=== PATIENT | female | born 1970 | race Caucasian/White ===

== ENCOUNTER 2021-02-06 10:03 | Inpatient (IN) ==
[2021-02-06] MEDS ORDERED: MoRPHine SULFATE 2 MG/ML CARP IV PRN (17:20)
[2021-02-06] MEDS ORDERED: ACETAMINOPHEN 325 MG TAB PO PRN (17:20)
[2021-02-06] MEDS ORDERED: ONDANSETRON INJ 2 MG/ML 2 ML VIAL IV PRN (17:20)
[2021-02-06] MEDS ORDERED: MoRPHine SULFATE 4 MG/ML 1 ML CARP\\VIAL IV PRN (17:20)
[2021-02-06] MEDS ORDERED: PIPERACILL/TAZOBAC CONSULT ACTIVE PRN (17:20)
[2021-02-06] MEDS: LACTATED RINGER'S 1,000 ML IV SCH (17:40)
[2021-02-06 17:46] LABS: Basophils # (auto) 0.01 K/uL (0-0.2); Basophils % (auto) 0.1 %; Eosinophils # (auto) 0.06 K/uL (0-0.5); Eosinophils % (auto) 0.9 %; Hematocrit (blood only) 40.8 % (37-47); Hemoglobin 13.8 g/dL (12.0-16.0); Immature Granulocytes # (auto) 0.01 K/uL (0.00-0.02); Immature Granulocytes % (auto) 0.1 %; Lymphocytes # (auto) 1.25 K/uL (1.2-3.4); Lymphocytes % (auto) 18.2 %; Mean Corpuscular Hemoglobin 28.2 pg (25-34); Mean Corpuscular Volume 83.3 fL (80-100); Mean Platelet Volume 9.6 fL (7.4-10.4); Monocytes # (auto) 0.65 K/uL (0.11-0.59); Monocytes % (auto) 9.5 %; Neutrophils # (auto) 4.89 K/uL (1.4-6.5); Neutrophils % (auto) 71.2 %; Platelet Count 309 K/uL (130-400); RDW Coefficient of Variation 13.9 % (11.5-14.5); RDW Standard Deviation 42.8 fL (36.4-46.3); White Blood Count 6.87 K/uL (4.8-10.8)
[2021-02-06 17:57] LABS: Mean Corpuscular Hgb Conc 33.8 g/dL (32-36)
[2021-02-06 18:06] LABS: Albumin Level 3.2 gm/dl (3.4-5.0); BUN Creatinine Ratio 11.5 (10-20); Calcium 8.7 mg/dl (8.5-10.1); Creatinine Clr Calc Pharmacy 106.7 ml/min; Est GFR (African American) 125.7 ml/min; Est GFR (Non-African American) 108.5 ml/min; Potassium 3.5 mmol/L (3.5-5.1)
[2021-02-06 18:07] LABS: Albumin Globulin Ratio 0.9 (0.9-2); Bilirubin,Total 6.1 mg/dl (0.2-1); Globulin 3.4 gm/dl (2.5-4.0); Total Protein 6.6 gm/dl (6.4-8.2)
--- NOTE | 2021-02-06 18:24 | History & Physical Report ---
Date of Service February 06, 2021 Assessment & Plan (1) Acute cholecystitis: diagnosed on imaging at [place], WBC was elevated on admission, LFT elevated treated with Zosyn for several days, no fever, vitals stable, WBC now normal less pain in RUQ consult surgery for cholecystectomy timing will depend on GI recommendations in terms of ERCP, see below (2) Cholangitis: Bili has gone up in past 24 hours from 4 to 6 alk phos up in 200's continue Zosyn IV MRCP did not show any obstructing stones but it did show CBD dilation could have sludge? consult [facility] GI for possible ERCP NPO after midnight (3) Cholelithiasis: causing cholecystitis needs lap cholecystectomy Admission and Anticipated Discharge Date Admission Date: February 06, 2021 History of Present Illness Chief Complaint: I was sent her for a procedure Primary Care Provider: Jayden Hurtado 50 yo female with no significant medical history who presented to [facility] 4 days ago with RUQ pain. She was diagnosed with gall stone cholecystitis. She was treated with Zosyn IV and IV fluids and made NPO. Her bilirubin started to rise to 4 and then to 6. The surgeon requested MRCP to be done prior to performing cholecystectomy. MRCP per sign out from physician did not show any gall stones but it did show dilation of the common bile duct. General surgeon requested that she be transferred to facility with ERCP capabilities. This evening on arrival she c/o some pain in RUQ but otherwise she feels okay. No nausea or vomiting, no diarrhea, no fever/chills. No chest pain, no dyspnea. Her only history is allergies, she takes Singulair. Stat labs show WBC normal, Hb normal, Bili is 6.1 and alk phos is 219. ALT 512 and AST 202. Cr is normal at 0.5. She says she is very thirsty but otherwise no requests. Allergies Allergy/AdvReac Type Severity Reaction Status Date / Time Sulfa (Sulfonamide Allergy Intermediate numb lips, Verified 02/15/12 14:32 Antibiotics) cheeks feel funny Past Med/Surg History Medical History (Updated 02/06/21 @ 18:21 by Edwin Aquino DO) Seasonal allergies Social History Smoking Status: Never smoker Hx Alcohol Use: No Hx Substance Use: No Preferred Language: Uzbek Communication Ability: Effective Anthropometrist Required: No Beliefs That Will Affect Care: None Current Living Situation: Spouse Other Information That Helps Us Care for You: No Feels Safe at Home: Yes Safety Concerns: Feels Safe At This Time Assistive Devices: None Review of Systems Review of Systems: All systems reviewed & are unremarkable except as noted in HPI & below Constitutional: no fever, no chills, no sweats, no fatigue and no weakness Respiratory: no cough and no dyspnea Cardiovascular: no chest pain, no syncope and no edema Gastrointestinal: + abdominal pain; no nausea, no vomiting, no constipation, no diarrhea/loose stools, no blood in stools and no melena Genitourinary: no dysuria Physical Exam Constitutional: WD/WN, vitals as above Eyes: PERRL, conjunctivae normal, anicteric sclerae ENMT: external ear and nose normal, oropharynx normal Neck: trachea midline, no thyromegaly Respiratory: normal respiratory effort, lungs clear to auscultation Cardiovascular: RRR, no murmur, no edema Gastrointestinal (Abdomen): Inspection/Auscultation: abdomen normal to inspection and normal bowel sounds; abdomen not distended Percussion/Palpation: + abdomen tender (RUQ), abdomen soft and normal to percussion; no guarding and abdomen not rigid Musculoskeletal: no cyanosis or clubbing, extremities motor strength 5/5 Skin: no rashes, warm and dry Neurologic: patellar DTR's 2+ bilat, sensation intact and PERRL, EOMI, accommodation nl, no face palsy, no dysarthria Psychiatric: A+Ox3, euthymic affect Lymphatic: no cervical or axillary lymphadenopathy Results & Data Results & Data ([facility]) Vital Signs (Past 12 Hours) Vital Signs Temp Resp Pulse Ox 02/06/21 17:15 36.8 C 16 97 Laboratory Results Laboratory Results - last 24 hr 02/06/21 02/06/21 02/06/21 17:36 17:36 18:12 WBC 6.87 RBC 4.90 Hgb 13.8 Hct 40.8 MCV 83.3 MCH 28.2 MCHC 33.8 RDW Std Deviation 42.8 RDW Coeff of Sammy 13.9 Plt Count 309 MPV 9.6 Immature Gran % (Auto) 0.1 Neut % (Auto) 71.2 Lymph % (Auto) 18.2 Noble % (Auto) 9.5 Eos % (Auto) 0.9 Baso % (Auto) 0.1 Neut # (Auto) 4.89 Lymph # (Auto) 1.25 Noble # (Auto) 0.65 H Eos # (Auto) 0.06 Baso # (Auto) 0.01 Immature Gran # (Auto) 0.01 Sodium 142 Potassium 3.5 Chloride 110 H Carbon Dioxide 25 Anion Gap 7.0 BUN 6 L Creatinine 0.54 L Est Cr Clr Drug Dosing 106.7 Est GFR ( Amer) 125.7 Est GFR (Non-Af Amer) 108.5 BUN/Creatinine Ratio 11.5 Glucose 73 Calcium 8.7 Total Bilirubin 6.1 H AST 202 H ALT 512 H Alkaline Phosphatase 219 H Total Protein 6.6 Albumin 3.2 L Globulin 3.4 Albumin/Globulin Ratio 0.9 COVID-19 Eval Order Covid19 at [facility] SARS-CoV-2 (PCR) 02/06/21 18:12 WBC RBC Hgb Hct MCV MCH MCHC RDW Std Deviation RDW Coeff of Sammy Plt Count MPV Immature Gran % (Auto) Neut % (Auto) Lymph % (Auto) Noble % (Auto) Eos % (Auto) Baso % (Auto) Neut # (Auto) Lymph # (Auto) Noble # (Auto) Eos # (Auto) Baso # (Auto) Immature Gran # (Auto) Sodium Potassium Chloride Carbon Dioxide Anion Gap BUN Creatinine Est Cr Clr Drug Dosing Est GFR ( Amer) Est GFR (Non-Af Amer) BUN/Creatinine Ratio Glucose Calcium Total Bilirubin AST ALT Alkaline Phosphatase Total Protein Albumin Globulin Albumin/Globulin Ratio COVID-19 Eval Order SARS-CoV-2 (PCR) Pending Code Status & VTE Plan VTE Prophylaxis Plan VTE Prophylaxis will be ordered: Yes PG Care Time/CCT Total # of Minutes Spent Total Time Spent with Patient: Total time spent is greater than 50% in coordination of care (as documented) at patient's floor/unit and/or counseling patient: Coding Level of Care Code 30309 Initial Inpt Care Lvl 2 Diagnoses Acute cholecystitis K81.0 Cholangitis K83.09 Cholelithiasis K80.20
--- NOTE | 2021-02-06 19:06 | Surgery Consultation ---
Date of Consultation February 06, 2021 Assessment & Plan (1) Cholangitis: (2) Cholelithiasis: (3) Acute cholecystitis: pt is a 50 year-old female who was admitted to hospital for acute abdominal pain, IMP: cholangitis, CBD stone, acute cholecystitis, cholelithiasis, I agree with consult GI doctor for ERCP, conservative treatment now, IV fluid, iv antibiotic, repeat labs in morning, U/S study gallbladder, or HIDA scan, will do laparoscopic cholecystectomy after ERCP, pt agrees with [facility] plan, I answered all questions, will F/U Present on Admission?: Yes History of Present Illness Attending Physician: PHistory of Present Illness Chief Complaint: I was sent her for a procedure Primary Care Provider: Jayden StrongKahlil Genesis 50 yo female with no significant medical history who presented to [facility] 4 days ago with RUQ pain. She was diagnosed with gall stone cholecystitis. She was treated with Zosyn IV and IV fluids and made NPO. Her bilirubin started to rise to 4 and then to 6. The surgeon requested MRCP to be done prior to performing cholecystectomy. MRCP per sign out from physician did not show any gall stones but it did show dilation of the common bile duct. General surgeon requested that she be transferred to facility with ERCP capabilities. This evening on arrival she c/o some pain in RUQ but otherwise she feels okay. No nausea or vomiting, no diarrhea, no fever/chills. No chest pain, no dyspnea. Her only history is allergies, she takes Singulair. Stat labs show WBC normal, Hb normal, Bili is 6.1 and alk phos is 219. ALT 512 and AST 202. Cr is normal at 0.5. She says she is very thirsty but otherwise no requests. I ( Brook Orlando mD ) got a call for consult cholecystitis, I reviewed pt's H/P, labs, MRCP, with pt, pt has mild epigastric pain, no nausea, no vomiting, no fever, Allergies Allergy/AdvReac Type Severity Reaction Status Date / Time Sulfa (Sulfonamide Allergy Intermediate numb lips, Verified 02/15/12 14:32 Antibiotics) cheeks feel funny Past Med/Surg History Medical History (Updated 02/06/21 @ 18:21 by Edwin Aquino DO) Seasonal allergies Social History Smoking Status: Never smoker Hx Alcohol Use: No Hx Substance Use: No Preferred Language: Welsh Communication Ability: Effective Analytical Technician Required: No Beliefs That Will Affect Care: None Current Living Situation: Spouse Other Information That Helps Us Care for You: No Feels Safe at Home: Yes Safety Concerns: Feels Safe At This Time Assistive Devices: None Review of Systems Review of Systems: All systems reviewed & are unremarkable except as noted in HPI & below Constitutional: no fever, no chills, no sweats, no fatigue and no weakness Respiratory: no cough and no dyspnea Cardiovascular: no chest pain, no syncope and no edema Gastrointestinal: + abdominal pain; no nausea, no vomiting, no constipation, no diarrhea/loose stools, no blood in stools and no melena Genitourinary: no dysuria naentte Aquino DO Allergies Allergy/AdvReac Type Severity Reaction Status Date / Time Sulfa (Sulfonamide Allergy Intermediate numb lips, Verified 02/15/12 14:32 Antibiotics) cheeks feel funny Home Medications Medication Instructions Recorded Confirmed Type cetirizine [Zyrtec] 10 mg PO DAILY PRN 02/06/21 02/06/21 History Patient History Medical History (Updated 02/06/21 @ 18:21 by Edwin Aquino DO) Seasonal allergies Social History Smoking Status: Never smoker Hx Alcohol Use: No Hx Substance Use: No Preferred Language: Welsh Communication Ability: Effective Analytical Technician Required: No Beliefs That Will Affect Care: None Current Living Situation: Spouse Other Information That Helps Us Care for You: No Feels Safe at Home: Yes Safety Concerns: Feels Safe At This Time Assistive Devices: None Physical Exam Constitutional: WD/WN, vitals as above well developed and well nourished Eyes: PERRL, conjunctivae normal, anicteric sclerae ENMT: external ear and nose normal, oropharynx normal Neck: trachea midline, no thyromegaly Respiratory: normal respiratory effort, lungs clear to auscultation normal respiratory effort Cardiovascular: RRR, no murmur, no edema Rate/Rhythm: regular rate Gastrointestinal (Abdomen): Percussion/Palpation: + abdomen tender and abdomen soft mild tenderness at epigastric area, no rebound pain, no distend, BS + Musculoskeletal: no cyanosis or clubbing, extremities motor strength 5/5 Skin: no rashes, warm and dry Neurologic: awake Psychiatric: Orientation: alert and oriented x 3 Results & Data ([facility]) Vital Signs (Past 12 Hours) Vital Signs Temp Resp Pulse Ox 02/06/21 17:15 36.8 C 16 97 Laboratory Results Abnormal lab results 02/06/21 02/06/21 Range/Units 17:36 17:36 Weston # (Auto) 0.65 H (0.11-0.59) K/uL Chloride 110 H (98-107) mmol/L BUN 6 L (7-18) mg/dl Creatinine 0.54 L (0.6-1.2) mg/dl Total Bilirubin 6.1 H (0.2-1) mg/dl AST 202 H (15-37) U/L ALT 512 H (12-78) U/L Alkaline Phosphatase 219 H (45-117) U/L Albumin 3.2 L (3.4-5.0) gm/dl
[2021-02-06] MEDS ORDERED: PIPERACILLIN/TAZOBACTAM 3.375 GM in DEXTROSE 5% 100 ML IV ONE (19:15)
[2021-02-06] MEDS: HEPARIN SOD 5,000 UNIT/0.5 ML VIAL SQ SCH (21:08)
[2021-02-07] MEDS: PIPERACILLIN/TAZOBACTAM 3.375 GM in DEXTROSE 5% 100 ML IV SCH ×3 (01:00→17:45)
[2021-02-07] MEDS: HEPARIN SOD 5,000 UNIT/0.5 ML VIAL SQ SCH ×3 (04:58→21:00)
[2021-02-07] MEDS: LACTATED RINGER'S 1,000 ML IV SCH ×2 (04:59→15:58)
[2021-02-07 07:31] LABS: Basophils # (auto) 0.01 K/uL (0-0.2); Basophils % (auto) 0.2 %; Eosinophils # (auto) 0.05 K/uL (0-0.5); Eosinophils % (auto) 0.8 %; Hematocrit (blood only) 38.2 % (37-47); Hemoglobin 12.8 g/dL (12.0-16.0); Immature Granulocytes # (auto) 0.01 K/uL (0.00-0.02); Immature Granulocytes % (auto) 0.2 %; Lymphocytes # (auto) 0.85 K/uL (1.2-3.4); Mean Corpuscular Hgb Conc 33.5 g/dL (32-36); Mean Corpuscular Volume 83.6 fL (80-100); Mean Platelet Volume 9.7 fL (7.4-10.4); Monocytes # (auto) 0.53 K/uL (0.11-0.59); Monocytes % (auto) 8.7 %; Neutrophils # (auto) 4.61 K/uL (1.4-6.5); Neutrophils % (auto) 76.1 %; Platelet Count 301 K/uL (130-400); RDW Coefficient of Variation 13.9 % (11.5-14.5); RDW Standard Deviation 42.9 fL (36.4-46.3); Red Blood Count 4.57 M/uL (4.2-5.4); White Blood Count 6.06 K/uL (4.8-10.8)
[2021-02-07 07:45] LABS: Partial Thromboplastin Ratio 1.2; Partial Thromboplastin Time 30.3 Seconds (21.0-31.0); Prothrombin Time 10.5 Seconds (9.0-12.0)
[2021-02-07 08:08] LABS: Albumin Level 2.8 gm/dl (3.4-5.0); BUN Creatinine Ratio 13.3 (10-20); Calcium 8.6 mg/dl (8.5-10.1); Creatinine Clr Calc Pharmacy 101.1 ml/min; Est GFR (African American) 123.5 ml/min; Est GFR (Non-African American) 106.6 ml/min; Potassium 3.2 mmol/L (3.5-5.1)
[2021-02-07 08:11] LABS: Albumin Globulin Ratio 0.9 (0.9-2); Bilirubin,Total 5.6 mg/dl (0.2-1); Globulin 3.3 gm/dl (2.5-4.0); Total Protein 6.1 gm/dl (6.4-8.2)
--- NOTE | 2021-02-07 08:34 | Hospitalist Progress Note ---
Date of Service February 07, 2021 Assessment & Plan (1) Acute cholecystitis: diagnosed on imaging at [place], WBC was elevated on admission, LFT elevated treated with Zosyn for several days, no fever, vitals stable, WBC now normal less pain in RUQ consult surgery for cholecystectomy, Dr. Orlando plans to have her follow up on Sunday 02/11 for lap vannesa will get ERCP today to clear out common bile duct (2) Cholangitis: Bili went from 4 to 6, today it is 5.6 AST and ALT elevated as well as Alk phos continue Zosyn IV MRCP did not show any obstructing stones but it did show CBD dilation could have sludge? consult [facility] GI for ERCP, plan to do this afternoon will repeat labs in the AM, if feeling good can send home on oral antibiotics and follow up for lap vannesa (3) Cholelithiasis: causing cholecystitis needs lap cholecystectomy eventually Admission and Anticipated Discharge Date Admission Date: February 06, 2021 Subjective patient doing well today, no issues over night, less pain reviewed labs, WBC 6k, Hb 12.8, K low at 3.2, Cr 0.57, bili is 5.6, AST 116, ALT 378, Alk phos 199 appreciate GI consult, plan for ERCP today Dr. Orlando followed up with patient today, he can have her follow up with him for lap vannesa next Wednesday discussed plan with patient, can check labs in AM, make sure LFT trending down, send home on antibiotics and follow up for surgery she is in full agreement with this plan no fever/chills, no dyspnea, no cough, no chest pain, minimal abdominal pain, no nausea/vomiting Review of Systems Review of Systems: All systems reviewed & are unremarkable except as noted in Subjective Physical Exam Constitutional: WD/WN, vitals as above Neck: trachea midline, no thyromegaly Respiratory: normal respiratory effort, lungs clear to auscultation Cardiovascular: RRR, no murmur, no edema Gastrointestinal (Abdomen): Inspection/Auscultation: abdomen normal to inspection and normal bowel sounds; abdomen not distended Percussion/Palpation: + abdomen tender (RUQ), abdomen soft and normal to percussion; no guarding and abdomen not rigid Musculoskeletal: no cyanosis or clubbing, extremities motor strength 5/5 Skin: no rashes, warm and dry Neurologic: patellar DTR's 2+ bilat, sensation intact and PERRL, EOMI, accommodation nl, no face palsy, no dysarthria Psychiatric: A+Ox3, euthymic affect Lymphatic: no cervical or axillary lymphadenopathy Results & Data Results & Data ([facility]) Vital Signs (Past 12 Hours) Vital Signs Temp Pulse Pulse Resp BP Pulse Ox 02/07/21 07:30 36.7 C 76 18 113/72 95 02/06/21 23:40 36.5 C 72 20 104/64 97 Laboratory Results Laboratory Results - last 24 hr 02/06/21 02/06/21 02/06/21 17:36 17:36 18:12 WBC 6.87 RBC 4.90 Hgb 13.8 Hct 40.8 MCV 83.3 MCH 28.2 MCHC 33.8 RDW Std Deviation 42.8 RDW Coeff of Sammy 13.9 Plt Count 309 MPV 9.6 Immature Gran % (Auto) 0.1 Neut % (Auto) 71.2 Lymph % (Auto) 18.2 Bladen % (Auto) 9.5 Eos % (Auto) 0.9 Baso % (Auto) 0.1 Neut # (Auto) 4.89 Lymph # (Auto) 1.25 Bladen # (Auto) 0.65 H Eos # (Auto) 0.06 Baso # (Auto) 0.01 Immature Gran # (Auto) 0.01 PT INR APTT PTT Ratio Sodium 142 Potassium 3.5 Chloride 110 H Carbon Dioxide 25 Anion Gap 7.0 BUN 6 L Creatinine 0.54 L Est Cr Clr Drug Dosing 106.7 Est GFR ( Amer) 125.7 Est GFR (Non-Af Amer) 108.5 BUN/Creatinine Ratio 11.5 Glucose 73 Calcium 8.7 Total Bilirubin 6.1 H AST 202 H ALT 512 H Alkaline Phosphatase 219 H Total Protein 6.6 Albumin 3.2 L Globulin 3.4 Albumin/Globulin Ratio 0.9 COVID-19 Eval Order Covid19 at [facility] SARS-CoV-2 (PCR) 02/06/21 02/07/21 02/07/21 18:12 07:11 07:11 WBC 6.06 RBC 4.57 Hgb 12.8 Hct 38.2 MCV 83.6 MCH 28.0 MCHC 33.5 RDW Std Deviation 42.9 RDW Coeff of Sammy 13.9 Plt Count 301 MPV 9.7 Immature Gran % (Auto) 0.2 Neut % (Auto) 76.1 Lymph % (Auto) 14.0 Bladen % (Auto) 8.7 Eos % (Auto) 0.8 Baso % (Auto) 0.2 Neut # (Auto) 4.61 Lymph # (Auto) 0.85 L Bladen # (Auto) 0.53 Eos # (Auto) 0.05 Baso # (Auto) 0.01 Immature Gran # (Auto) 0.01 PT 10.5 INR 1.0 APTT 30.3 PTT Ratio 1.2 Sodium Potassium Chloride Carbon Dioxide Anion Gap BUN Creatinine Est Cr Clr Drug Dosing Est GFR ( Amer) Est GFR (Non-Af Amer) BUN/Creatinine Ratio Glucose Calcium Total Bilirubin AST ALT Alkaline Phosphatase Total Protein Albumin Globulin Albumin/Globulin Ratio COVID-19 Eval Order SARS-CoV-2 (PCR) NEGATIVE 02/07/21 07:11 WBC RBC Hgb Hct MCV MCH MCHC RDW Std Deviation RDW Coeff of Sammy Plt Count MPV Immature Gran % (Auto) Neut % (Auto) Lymph % (Auto) Bladen % (Auto) Eos % (Auto) Baso % (Auto) Neut # (Auto) Lymph # (Auto) Bladen # (Auto) Eos # (Auto) Baso # (Auto) Immature Gran # (Auto) PT INR APTT PTT Ratio Sodium 139 Potassium 3.2 L Chloride 107 Carbon Dioxide 23 Anion Gap 9.0 BUN 8 Creatinine 0.57 L Est Cr Clr Drug Dosing 101.1 Est GFR ( Amer) 123.5 Est GFR (Non-Af Amer) 106.6 BUN/Creatinine Ratio 13.3 Glucose 76 Calcium 8.6 Total Bilirubin 5.6 H AST 116 H ALT 378 H Alkaline Phosphatase 199 H Total Protein 6.1 L Albumin 2.8 L Globulin 3.3 Albumin/Globulin Ratio 0.9 COVID-19 Eval Order SARS-CoV-2 (PCR) Medications Administered Current Inpatient Medications Acetaminophen (Acetaminophen 325 Mg Tab) 650 mg PO Q4H PRN PRN Reason: pain/fever Stop: 03/08/21 17:19 Heparin Sodium (Porcine) (Heparin Sod 5,000 Unit/0.5 Ml Vial) 5,000 units SQ Q8 NAEL Stop: 03/08/21 21:59 Last Admin: 02/07/21 04:58 Dose: 5,000 units Documented by: Piperacillin Sod/Tazobactam (Sod 3.375 gm/ Dextrose) 115 mls @ 28.75 mls/hr IV Q8H NAEL Stop: 02/16/21 17:59 Last Infusion: 02/07/21 04:56 Dose: Infused Documented by: Lactated Ringer's (Lr) 1,000 mls @ 80 mls/hr IV .[id number] NAEL Stop: 03/08/21 17:29 Last Admin: 02/07/21 04:59 Dose: 80 mls/hr Documented by: Potassium Chloride (K Darryl / Wtr) 10 meq in 100 mls @ 100 mls/hr IV Q1H NAEL Stop: 02/07/21 10:44 Miscellaneous Information (Piperacill/Tazobac Consult Active) 1 ea N/A UD PRN PRN Reason: Consult Stop: 03/08/21 17:19 Morphine Sulfate (Morphine Sulfate 2 Mg/Ml Carp) 2 mg IV Q4H PRN PRN Reason: Pain Stop: 02/20/21 17:19 Morphine Sulfate (Morphine Sulfate 4 Mg/Ml 1 Ml Carp\Vial) 4 mg IV Q4H PRN PRN Reason: Severe Pain Stop: 02/20/21 17:19 Last Admin: 02/06/21 18:20 Dose: 4 mg Documented by: Ondansetron HCl (Ondansetron Inj 2 Mg/Ml 2 Ml Vial) 4 mg IV Q6H PRN PRN Reason: Nausea Stop: 03/08/21 17:19 Last Admin: 02/06/21 18:20 Dose: 4 mg Documented by: PG Care Time/CCT Total # of Minutes Spent Total Time Spent with Patient: Total time spent is greater than 50% in coordination of care (as documented) at patient's floor/unit and/or counseling patient: Coding Level of Care Code 99298 Subseq Hosp Care Lvl 2 Diagnoses Acute cholecystitis K81.0 Cholangitis K83.09 Cholelithiasis K80.20
--- NOTE | 2021-02-07 08:50 | Gastrointestinal Consultation ---
Date of Consultation February 07, 2021 Assessment & Plan (1) Cholelithiasis: This is a 50-year-old female transferred here from outside hospital after being admitted with cholecystitis; has been on empiric ABX, and GI asked to evaluate for possible ERCP given concern for cholangitis, cholecystitis. Though MRCP was unremarkable for there is concern for possible biliary involvement as she has obstructive LFTs, elevated bilirubin. She's afebrile, not tachycardic, or hypotensive, abdomen is soft on exam. -Keep n.p.o. -IVF -Empiric ABX -Will plan for ERCP later today -Agree with surgical consult for possible cholecystectomy -Analgesia as needed -Trend LFTs, CBC Thank you for allowing us to participate in the care of this patient. Please call with any acute changes, questions or concerns. Please see addendum below with additional recommendation from my supervising physician. Supervising Physician Co-Signing Physician Notes I saw and evaluated the patient. She presented with approximately 5 to 6 days of intermittent right-sided abdominal discomfort associated with nausea. She was found to have a significant elevation of her liver enzymes in addition to serum bilirubin. Imaging does show evidence of cholelithiasis, unclear if she has choledocholithiasis. Physical examination Scleral icterus noted Right upper quadrant tenderness noted No shortness of breath Impression: Patient with elevated liver enzymes, biliary colic most consistent with choledocholithiasis. Given the significant elevation of the serum bilirubin we will proceed with ERCP given the high pretest probability. I have consented the patient for endoscopic ultrasound should we have difficulty with biliary cannulation. We have discussed the risks to include bleeding, infection, perforation, pancreatitis, failed biliary cannulation and need for follow-up studies. History of Present Illness Reason for Consultation: Cholecystitis, possible cholangitis Requesting Physician: Dr. Aquino Attending Physician: Edwin Aquino, DO History of Present Illness This is a 50 -year-old female with no significant past medical history, transferred here yesterday from [facility]. Initially admitted there Wednesday after presenting with abdominal pain that began the previous day. She had transaminitis, and elevated bilirubin at 2. She was started on Zosyn. Initially, CTAP showed gallbladder wall thickening and edema with prominent wall enhancement, and MRCP was performedMRCP imaging was unremarkable, however, findings were concerning for acute cholecystitis with gallbladder wall thickening, pericholecystic fluid, small gallstones. Per staff, intention was to transfer to a tertiary center with ERCP capability, initially they tried for [facility] however, due to bed availability, this was not done. Her bilirubin increased to 6. She was transferred here yesterday. She was evaluated by surgery yesterday, who is planning for laparoscopic cholecystectomy after we evaluate her for potential ERCP. Overnight, patient continues on IV antibiotics and fluids. Bilirubin is 6, AST 202, ALT 512, ALP 219, INR of 1, WBC 6, she is Covid negative. In general she states her pain is generally controlled, is fairly constant and a low level which she finds tolerable. Denies nausea vomiting, hematemesis, melena, fevers or chills, rigors, chest pain or shortness of breath, tobacco use, NSAID use or anticoagulants, no NSAID use. Denies history of gastric bypass or biliary surgery. Allergies Allergy/AdvReac Type Severity Reaction Status Date / Time Sulfa (Sulfonamide Allergy Intermediate numb lips, Verified 02/15/12 14:32 Antibiotics) cheeks feel funny Home Medications Medication Instructions Recorded Confirmed Type cetirizine [Zyrtec] 10 mg PO DAILY PRN 02/06/21 02/06/21 History Patient History Medical History Seasonal allergies Social History Smoking Status: Never smoker Hx Alcohol Use: No Hx Substance Use: No Preferred Language: Citizen Of [place] Communication Ability: Effective Strapper And Buffer Required: No Beliefs That Will Affect Care: None Current Living Situation: Spouse Other Information That Helps Us Care for You: No Feels Safe at Home: Yes Safety Concerns: Feels Safe At This Time Assistive Devices: None Review of Systems 2 Review of Systems: All systems reviewed & are unremarkable except as noted in HPI & below Physical Exam Constitutional: WD/WN, vitals as above Eyes: + anicteric sclerae Respiratory: normal respiratory effort, lungs clear to auscultation Cardiovascular: RRR, no murmur, no edema Gastrointestinal (Abdomen): Inspection/Auscultation: abdomen normal to inspection and normal bowel sounds; abdomen not distended Percussion/Palpation: abdomen soft; no guarding mild TTP epigastrium, no rebound Skin: no rashes, warm and dry no jaundice Psychiatric: A+Ox3, euthymic affect Results & Data ([place]) Vital Signs (Past 12 Hours) Vital Signs Temp Pulse Pulse Resp BP Pulse Ox 02/07/21 07:30 36.7 C 76 18 113/72 95 02/06/21 23:40 36.5 C 72 20 104/64 97 Laboratory Results 02/07/21 02/07/21 02/07/21 Range/Units 07:11 07:11 07:11 WBC 6.06 (4.8-10.8) K/uL RBC 4.57 (4.2-5.4) M/uL Hgb 12.8 (12.0-16.0) g/dL Hct 38.2 (37-47) % MCV 83.6 (80-100) fL MCH 28.0 (25-34) pg MCHC 33.5 (32-36) g/dL RDW Std Deviation 42.9 (36.4-46.3) fL RDW Coeff of Sammy 13.9 (11.5-14.5) % Plt Count 301 (130-400) K/uL MPV 9.7 (7.4-10.4) fL Immature Gran % (Auto) 0.2 % Neut % (Auto) 76.1 % Lymph % (Auto) 14.0 % [place] % (Auto) 8.7 % Eos % (Auto) 0.8 % Baso % (Auto) 0.2 % Neut # (Auto) 4.61 (1.4-6.5) K/uL Lymph # (Auto) 0.85 L (1.2-3.4) K/uL [place] # (Auto) 0.53 (0.11-0.59) K/uL Eos # (Auto) 0.05 (0-0.5) K/uL Baso # (Auto) 0.01 (0-0.2) K/uL Immature Gran # (Auto) 0.01 (0.00-0.02) K/uL PT 10.5 (9.0-12.0) Seconds INR 1.0 (0.9-1.1) APTT 30.3 (21.0-31.0) Seconds PTT Ratio 1.2 Sodium 139 (136-145) mmol/L Potassium 3.2 L (3.5-5.1) mmol/L Chloride 107 (98-107) mmol/L Carbon Dioxide 23 (21-32) mmol/L Anion Gap 9.0 (3-11) BUN 8 (7-18) mg/dl Creatinine 0.57 L (0.6-1.2) mg/dl Est Cr Clr Drug Dosing 101.1 ml/min Est GFR ( Amer) 123.5 ml/min Est GFR (Non-Af Amer) 106.6 ml/min BUN/Creatinine Ratio 13.3 (10-20) Glucose 76 (70-99) mg/dl Calcium 8.6 (8.5-10.1) mg/dl Total Bilirubin 5.6 H (0.2-1) mg/dl AST 116 H (15-37) U/L ALT 378 H (12-78) U/L Alkaline Phosphatase 199 H (45-117) U/L Total Protein 6.1 L (6.4-8.2) gm/dl Albumin 2.8 L (3.4-5.0) gm/dl Globulin 3.3 (2.5-4.0) gm/dl Albumin/Globulin Ratio 0.9 (0.9-2) COVID-19 Eval Order SARS-CoV-2 (PCR) (Negative) 02/06/21 02/06/21 02/06/21 Range/Units 18:12 18:12 17:36 WBC 6.87 (4.8-10.8) K/uL RBC 4.90 (4.2-5.4) M/uL Hgb 13.8 (12.0-16.0) g/dL Hct 40.8 (37-47) % MCV 83.3 (80-100) fL MCH 28.2 (25-34) pg MCHC 33.8 (32-36) g/dL RDW Std Deviation 42.8 (36.4-46.3) fL RDW Coeff of Sammy 13.9 (11.5-14.5) % Plt Count 309 (130-400) K/uL MPV 9.6 (7.4-10.4) fL Immature Gran % (Auto) 0.1 % Neut % (Auto) 71.2 % Lymph % (Auto) 18.2 % [place] % (Auto) 9.5 % Eos % (Auto) 0.9 % Baso % (Auto) 0.1 % Neut # (Auto) 4.89 (1.4-6.5) K/uL Lymph # (Auto) 1.25 (1.2-3.4) K/uL [place] # (Auto) 0.65 H (0.11-0.59) K/uL Eos # (Auto) 0.06 (0-0.5) K/uL Baso # (Auto) 0.01 (0-0.2) K/uL Immature Gran # (Auto) 0.01 (0.00-0.02) K/uL PT (9.0-12.0) Seconds INR (0.9-1.1) APTT (21.0-31.0) Seconds PTT Ratio Sodium (136-145) mmol/L Potassium (3.5-5.1) mmol/L Chloride (98-107) mmol/L Carbon Dioxide (21-32) mmol/L Anion Gap (3-11) BUN (7-18) mg/dl Creatinine (0.6-1.2) mg/dl Est Cr Clr Drug Dosing ml/min Est GFR ( Amer) ml/min Est GFR (Non-Af Amer) ml/min BUN/Creatinine Ratio (10-20) Glucose (70-99) mg/dl Calcium (8.5-10.1) mg/dl Total Bilirubin (0.2-1) mg/dl AST (15-37) U/L ALT (12-78) U/L Alkaline Phosphatase (45-117) U/L Total Protein (6.4-8.2) gm/dl Albumin (3.4-5.0) gm/dl Globulin (2.5-4.0) gm/dl Albumin/Globulin Ratio (0.9-2) COVID-19 Eval Order Covid19 at [facility] SARS-CoV-2 (PCR) NEGATIVE (Negative) 02/06/21 Range/Units 17:36 WBC (4.8-10.8) K/uL RBC (4.2-5.4) M/uL Hgb (12.0-16.0) g/dL Hct (37-47) % MCV (80-100) fL MCH (25-34) pg MCHC (32-36) g/dL RDW Std Deviation (36.4-46.3) fL RDW Coeff of Sammy (11.5-14.5) % Plt Count (130-400) K/uL MPV (7.4-10.4) fL Immature Gran % (Auto) % Neut % (Auto) % Lymph % (Auto) % [place] % (Auto) % Eos % (Auto) % Baso % (Auto) % Neut # (Auto) (1.4-6.5) K/uL Lymph # (Auto) (1.2-3.4) K/uL [place] # (Auto) (0.11-0.59) K/uL Eos # (Auto) (0-0.5) K/uL Baso # (Auto) (0-0.2) K/uL Immature Gran # (Auto) (0.00-0.02) K/uL PT (9.0-12.0) Seconds INR (0.9-1.1) APTT (21.0-31.0) Seconds PTT Ratio Sodium 142 (136-145) mmol/L Potassium 3.5 (3.5-5.1) mmol/L Chloride 110 H (98-107) mmol/L Carbon Dioxide 25 (21-32) mmol/L Anion Gap 7.0 (3-11) BUN 6 L (7-18) mg/dl Creatinine 0.54 L (0.6-1.2) mg/dl Est Cr Clr Drug Dosing 106.7 ml/min Est GFR ( Amer) 125.7 ml/min Est GFR (Non-Af Amer) 108.5 ml/min BUN/Creatinine Ratio 11.5 (10-20) Glucose 73 (70-99) mg/dl Calcium 8.7 (8.5-10.1) mg/dl Total Bilirubin 6.1 H (0.2-1) mg/dl AST 202 H (15-37) U/L ALT 512 H (12-78) U/L Alkaline Phosphatase 219 H (45-117) U/L Total Protein 6.6 (6.4-8.2) gm/dl Albumin 3.2 L (3.4-5.0) gm/dl Globulin 3.4 (2.5-4.0) gm/dl Albumin/Globulin Ratio 0.9 (0.9-2) COVID-19 Eval Order SARS-CoV-2 (PCR) (Negative) (1) Cholelithiasis Cholecystitis acuity: acute Cholecystitis presence: with cholecystitis
--- NOTE | 2021-02-07 09:20 | Anesthesiology Consultation ---
Date of Service February 07, 2021 Assessment & Plan (1) Encounter for pre-operative examination: Chart Review Chart Review: Acceptable Risk for Surgery History Surgery Operation Date: 02/07/21 07:55 Proposed Procedures p Endoscopic Retrograde Cholangiopancreato - Rowena Marie DO Height/Weight Height: 5 ft 1 in Weight: 67 kg Allergies Allergy/AdvReac Type Severity Reaction Status Date / Time Sulfa (Sulfonamide Allergy Intermediate numb lips, Verified 02/15/12 14:32 Antibiotics) cheeks feel funny Medications Home Medications Medication Instructions Recorded Confirmed Last Taken cetirizine [Zyrtec] 10 mg PO DAILY PRN 02/06/21 02/06/21 3 Days Ago ~02/03/21 10 mg Active Medications Generic Name Dose Route Start Last Admin Trade Name Freq PRN Reason Stop Dose Admin Heparin Sodium (Porcine) 5,000 units 02/06/21 22:00 02/07/21 04:58 Heparin Sod 5,000 Unit/0.5 Ml Vial SQ 03/08/21 21:59 5,000 units Q8 NAEL Administration Piperacillin Sod/Tazobactam 115 mls @ 28.75 mls/hr 02/07/21 02:00 02/07/21 04:56 Sod 3.375 gm/ Dextrose IV 02/16/21 17:59 Infused Q8H NAEL Infusion Lactated Ringer's 1,000 mls @ 80 mls/hr 02/06/21 17:30 02/07/21 04:59 Lr IV 03/08/21 17:29 80 mls/hr .[id number] NAEL Administration Morphine Sulfate 4 mg 02/06/21 17:20 02/06/21 18:20 Morphine Sulfate 4 Mg/Ml 1 Ml Carp\Vial IV 02/20/21 17:19 4 mg Q4H PRN Administration Severe Pain Ondansetron HCl 4 mg 02/06/21 17:20 02/06/21 18:20 Ondansetron Inj 2 Mg/Ml 2 Ml Vial IV 03/08/21 17:19 4 mg Q6H PRN Administration Nausea Past Medical History Medical History Seasonal allergies Social History Smoking Status: Never smoker Hx Alcohol Use: No Hx Substance Use: No substance use type: does not use Physical Exam Vital Signs Last Vital Signs Temp 36.7 C 02/07/21 07:30 Pulse 76 02/07/21 07:30 Resp 18 02/07/21 07:30 BP 113/72 02/07/21 07:30 Pulse Ox 95 02/07/21 07:30 Testing Laboratory Results 02/07/21 07:11 02/07/21 07:11 PT 10.5 Seconds (9.0-12.0) 02/07/21 07:11 INR 1.0 (0.9-1.1) 02/07/21 07:11 APTT 30.3 Seconds (21.0-31.0) 02/07/21 07:11 covid negative 02/06
[2021-02-07] MEDS: POTASSIUM CHLORIDE / WTR 10 MEQ/100 ML PLCT IV SCH ×2 (09:51→11:21)
--- NOTE | 2021-02-07 12:00 | Progress Note ---
Date of Service pt is stable no significant abdominal pain, pt will have ERCP today, February 07, 2021 Assessment & Plan (1) Cholangitis: (2) Cholelithiasis: Cholecystitis presence: with cholecystitis Cholecystitis acuity: acute (3) Acute cholecystitis: pt is a 50 year-old female who was admitted to hospital for acute abdominal pain, IMP: cholangitis, CBD stone, acute cholecystitis, cholelithiasis, I agree with consult GI doctor for ERCP, conservative treatment now, IV fluid, iv antibiotic, repeat labs in morning, U/S study gallbladder, or HIDA scan, will do laparoscopic cholecystectomy after ERCP, pt agrees with the plan, I answered all questions, will F/U 02/07/2021 11: 56 AM F/U cholecystitis cholelithiasis, CBD stone, pt will have ERCP today by GI doctor, continue treatment projection technician surgeon cover the weekend and holiday, plan to do laparoscopic cholecystectomy on 02/11/2021, or projection technician surgeon do it on weekend, Admission and Anticipated Discharge Date Admission Date: February 06, 2021 Physical Exam Constitutional: WD/WN, vitals as above well developed and well nourished Eyes: PERRL, conjunctivae normal, anicteric sclerae ENMT: external ear and nose normal, oropharynx normal Neck: trachea midline, no thyromegaly Respiratory: normal respiratory effort, lungs clear to auscultation normal respiratory effort Cardiovascular: RRR, no murmur, no edema Rate/Rhythm: regular rate Gastrointestinal (Abdomen): Percussion/Palpation: + abdomen tender and abdomen soft mild tenderness at RUQ, no rebound pain, no distend, BS + Musculoskeletal: no cyanosis or clubbing, extremities motor strength 5/5 Skin: no rashes, warm and dry Neurologic: awake Psychiatric: Orientation: alert and oriented x 3 Results & Data ([facility]) Vital Signs (Past 12 Hours) Vital Signs Temp Pulse Resp BP Pulse Ox 02/07/21 07:30 36.7 C 76 18 113/72 95 Laboratory Results Abnormal lab results 02/06/21 02/06/21 02/07/21 Range/Units 17:36 17:36 07:11 Lymph # (Auto) 0.85 L (1.2-3.4) K/uL [place] # (Auto) 0.65 H (0.11-0.59) K/uL Potassium (3.5-5.1) mmol/L Chloride 110 H (98-107) mmol/L BUN 6 L (7-18) mg/dl Creatinine 0.54 L (0.6-1.2) mg/dl Total Bilirubin 6.1 H (0.2-1) mg/dl AST 202 H (15-37) U/L ALT 512 H (12-78) U/L Alkaline Phosphatase 219 H (45-117) U/L Total Protein (6.4-8.2) gm/dl Albumin 3.2 L (3.4-5.0) gm/dl 02/07/21 Range/Units 07:11 Lymph # (Auto) (1.2-3.4) K/uL [place] # (Auto) (0.11-0.59) K/uL Potassium 3.2 L (3.5-5.1) mmol/L Chloride (98-107) mmol/L BUN (7-18) mg/dl Creatinine 0.57 L (0.6-1.2) mg/dl Total Bilirubin 5.6 H (0.2-1) mg/dl AST 116 H (15-37) U/L ALT 378 H (12-78) U/L Alkaline Phosphatase 199 H (45-117) U/L Total Protein 6.1 L (6.4-8.2) gm/dl Albumin 2.8 L (3.4-5.0) gm/dl
[2021-02-07] MEDS ORDERED: ROCURONIUM BROMIDE 10 MG/ML 5 ML VIAL IV ONE (12:03)
[2021-02-07] MEDS ORDERED: PROPOFOL IV EMULSION 10 MG/ML 20 ML VIAL IV ONE (12:03)
[2021-02-07] MEDS ORDERED: LIDOCAINE 2% 2 ML VIAL/AMP(20MG/ML) INFIL ONE (12:03)
[2021-02-07] MEDS ORDERED: SUCCINYLCHOLINE CHLORIDE 20 MG/ML 10 ML VIAL IV ONE (12:03)
[2021-02-07] MEDS ORDERED: fentaNYL citrate 100 MCG/2 ML VIAL ONE (12:03)
[2021-02-07] MEDS ORDERED: ONDANSETRON INJ 2 MG/ML 2 ML VIAL IV PRN (12:30)
[2021-02-07] MEDS ORDERED: PROMETHAZINE HCL 12.5 MG in SODIUM CHLORIDE 0.9% 50 ML IV PRN (12:30)
[2021-02-07] MEDS ORDERED: fentaNYL citrate 100 MCG/2 ML VIAL IV PRN (12:30)
[2021-02-07] MEDS ORDERED: ATROPINE SULFATE 0.1 MG/ML 10ML SYR IV PRN (12:30)
[2021-02-07] MEDS ORDERED: INDOMETHACIN 50 MG SUPP PR ONE (12:58)
[2021-02-07] MEDS ORDERED: ONDANSETRON INJ 2 MG/ML 2 ML VIAL ONE (13:06)
[2021-02-07] MEDS ORDERED: DEXAMETHASONE SOD INJ 4 MG/ML VIAL ONE (13:06)
--- NOTE | 2021-02-07 13:11 | Post Operative Brief Note ---
Immediate Post Op Note v1 Date of Surgery February 07, 2021 Pre & Post Diagnosis Operation Date: 02/07/21 07:55 Pre-Op Diagnosis: CHOLECYSTITIS Post-Op Diagnosis: Choledocholithisis / cholangitis I identified the patient and participated in the time-out.: Yes Procedure Operation Date: 02/07/21 07:55 Actual Procedures p Endoscopic Retrograde Cholangiopancreato - Rowena Marie DO s Endoscopic Ultrasonography Upper - Rowena Marie DO Surgeon Rowena aMrie DO Engine Inspector none Estimated Blood Loss 0 Findings Consistent with Post-Op Diagnosis
--- NOTE | 2021-02-07 13:13 | Communication Note ---
Date of Service: February 07, 2021 The patient underwent ERCP this afternoon for suspected choledocholithiasis. She was found to have multiple stones within the common bile duct and evidence o f mild cholangitis. A biliary sphincterotomy was performed, stone extraction performed and biliary stent was placed Recommendations May have clear liquids this afternoon Avoid nonsteroidals for 1 week Cholecystectomy per general surgery Continue antibiotic coverage for total of 10 days Repeat ERCP in 6 to 8 weeks Please call with any questions or concerns
--- NOTE | 2021-02-07 13:37 | Fluoroscopy Report ---
[place] ERCP biliary ductal CLINICAL HISTORY: ERCP IN OR COMPARISON STUDY: MRI dated 02/05/2021 FLUOROSCOPY TIME: 39 seconds. NUMBER OF FLUOROSCOPIC IMAGES: 10 FINDINGS: 10 fluoroscopic spot images obtained during ERCP are provided for interpretation. These dem onstrate retrograde cannulization of the common bile duct with contrast injection. A balloon catheter appears to have been swept through the duct. The final images demonstrate placement of a biliary ent eloisa stent. IMPRESSION: Fluoroscopic spot images obtained during ERCP with placement of a biliary enteric stent ACT 112: Negative or not required by law. Electronically signed by: Paras Finch M.D. 02/07/2021 1:35 PM
--- NOTE | 2021-02-07 14:12 | Anesthesiology Progress Note ---
Date of Service February 07, 2021 Anesthesia Post Procedure Vital Signs Vital Signs: Temp Pulse Pulse Pulse Resp BP Pulse Ox 02/07/21 14:00 77 20 124/65 94 02/07/21 13:50 78 16 120/74 95 02/07/21 13:40 36.7 C 75 20 121/69 95 02/07/21 13:30 77 20 121/69 96 02/07/21 13:20 75 16 119/63 97 02/07/21 13:14 37.0 C 80 14 111/61 100 02/07/21 12:13 36.8 C 80 18 137/73 95 02/07/21 07:30 36.7 C 76 18 113/72 95 02/06/21 23:40 36.5 C 72 20 104/64 97 02/06/21 17:15 36.8 C 16 97 Pain Intensity Abdomen: Pain Intensity: 0 Transfer of Care Handoff Completed per policy Notes Mental Status: alert / awake / arousable Patient Amnestic to Procedure: Yes Nausea / Vomiting: adequately controlled Pain: adequately controlled Airway Patency, RR, SpO2: stable & adequate BP & HR: stable & adequate Hydration State: stable & adequate Anesthetic Complications: no major complications apparent
[2021-02-08] MEDS: PIPERACILLIN/TAZOBACTAM 3.375 GM in DEXTROSE 5% 100 ML IV SCH ×2 (02:08→09:21)
[2021-02-08] MEDS: LACTATED RINGER'S 1,000 ML IV SCH (04:08)
--- NOTE | 2021-02-08 05:32 | Surgery Progress Note ---
Date of Service February 08, 2021 Assessment & Plan (1) Cholangitis: Patient has undergone ERCP due to choledocholithiasis by Dr. Marie on 02/07/2021 Patient require repeat ERCP in 6 to 8 weeks NSAIDs are to be avoided for 1 week Antibiotic should continue for approximately 10 days. She is currently receiving Zosyn. Patient is tentatively scheduled for cholecystectomy by Dr. Orlando on 02/11/2021. -Patient has expressed desire to go home and returned for her surgery as an outpatient -Patient does have repeat labs ordered for this morning which are pending. If she is discharged antibiotics will need to be transitioned to oral form for a total of 10 days If she is discharged home she is to contact Dr. Orlando's office for surgical planning Subcu heparin is in place for DVT prevention Admission and Anticipated Discharge Date Admission Date: February 06, 2021 Subjective Patient is currently resting comfortably in bed. She says she is currently tolerating solid foods without nausea, vomiting, or worsening abdominal pain. She denies any fevers, shakes, chills. She denies any shortness of breath. Physical Exam Gastrointestinal (Abdomen): Abdomen is soft, nontender, nondistended. Palpation did not cause pain. Results & Data ([facility]) Vital Signs (Past 12 Hours) Vital Signs Temp Pulse Pulse Resp BP Pulse Ox 02/08/21 02:59 36.6 C 69 15 101/64 93 02/07/21 22:10 36.7 C 72 14 111/72 93 02/07/21 19:14 36.7 C 75 18 120/81 96 PG Care Time/CCT Total # of Minutes Spent Total Time Spent with Patient: Total time spent is greater than 50% in coordination of care (as documented) at patient's floor/unit and/or counseling patient: Coding Level of Care Code 95312 Subseq Hosp Care Lvl 1 Diagnoses Cholangitis K83.09
[2021-02-08] MEDS: HEPARIN SOD 5,000 UNIT/0.5 ML VIAL SQ SCH (05:55)
--- NOTE | 2021-02-08 06:19 | Surgery Progress Note ---
Date of Service February 08, 2021 Assessment & Plan (1) Cholelithiasis: Patient is doing much better status post ERCP with stent placement She wishes to go home which from a surgical standpoint would be okay I will check with the OR it may be that she returns on Wednesday for laparoscopic cholecystectomy by Dr. Orlando She will otherwise call his office on Wednesday to set up her surgery which would be safe to have within 1 to 2 weeks Admission and Anticipated Discharge Date Admission Date: February 06, 2021 Subjective See assessment and plan Results & Data ([facility]) Vital Signs (Past 12 Hours) Vital Signs Temp Pulse Pulse Resp BP Pulse Ox 02/08/21 02:59 36.6 C 69 15 101/64 93 02/07/21 22:10 36.7 C 72 14 111/72 93 02/07/21 19:14 36.7 C 75 18 120/81 96 PG Care Time/CCT Total # of Minutes Spent Total Time Spent with Patient: Total time spent is greater than 50% in coordination of care (as documented) at patient's floor/unit and/or counseling patient: Coding Level of Care Code 28691 Subseq Hosp Care Lvl 2 Diagnoses Cholelithiasis K80.20 Cholecystitis presence: with cholecystitis Cholecystitis acuity: acute (1) Cholelithiasis Cholecystitis presence: with cholecystitis Cholecystitis acuity: acute
[2021-02-08 06:21] LABS: Hematocrit (blood only) 35.2 % (37-47); Hemoglobin 12.2 g/dL (12.0-16.0); Mean Corpuscular Hgb Conc 34.7 g/dL (32-36); Mean Corpuscular Volume 80.9 fL (80-100); Mean Platelet Volume 9.8 fL (7.4-10.4); Platelet Count 275 K/uL (130-400); RDW Coefficient of Variation 13.6 % (11.5-14.5); RDW Standard Deviation 40.5 fL (36.4-46.3); Red Blood Count 4.35 M/uL (4.2-5.4); White Blood Count 6.71 K/uL (4.8-10.8)
[2021-02-08 07:00] LABS: Albumin Globulin Ratio 0.8 (0.9-2); Albumin Level 2.7 gm/dl (3.4-5.0); BUN Creatinine Ratio 10.3 (10-20); Bilirubin,Total 3.6 mg/dl (0.2-1); Calcium 8.3 mg/dl (8.5-10.1); Creatinine Clr Calc Pharmacy 73.9 ml/min; Est GFR (African American) 101.3 ml/min; Est GFR (Non-African American) 87.4 ml/min; Globulin 3.2 gm/dl (2.5-4.0); Potassium 3.3 mmol/L (3.5-5.1); Total Protein 5.9 gm/dl (6.4-8.2)
--- NOTE | 2021-02-08 10:23 | Discharge Summary ---
Date of Service February 08, 2021 Admission HPI Per Admitting Provider 50 yo female with no significant medical history who presented to [facility] 4 days ago with RUQ pain. She was diagnosed with gall stone cholecystitis. She was treated with Zosyn IV and IV fluids and made NPO. Her bilirubin started to rise to 4 and then to 6. The surgeon requested MRCP to be done prior to performing cholecystectomy. MRCP per sign out from physician did not show any gall stones but it did show dilation of the common bile duct. General surgeon requested that she be transferred to facility with ERCP capabilities. This evening on arrival she c/o some pain in RUQ but otherwise she feels okay. No nausea or vomiting, no diarrhea, no fever/chills. No chest pain, no dyspnea. Her only history is allergies, she takes Singulair. Stat labs show WBC normal, Hb normal, Bili is 6.1 and alk phos is 219. ALT 512 and AST 202. Cr is normal at 0.5. She says she is very thirsty but otherwise no requests. Principal Diagnosis Acute cholecystitis, cholangitis and choledocholithiasis Discharge Exam Constitutional WD/WN, vitals as above Eyes PERRL, conjunctivae normal, anicteric sclerae ENMT external ear and nose normal, oropharynx normal Neck trachea midline, no thyromegaly Respiratory normal respiratory effort, lungs clear to auscultation Cardiovascular RRR, no murmur, no edema Gastrointestinal (Abdomen) Inspection/Auscultation: abdomen normal to inspection and normal bowel sounds; abdomen not distended Percussion/Palpation: abdomen soft and normal to percussion; abdomen nontender, no guarding and abdomen not rigid Musculoskeletal no cyanosis or clubbing, extremities motor strength 5/5 Skin no rashes, warm and dry Neurologic patellar DTR's 2+ bilat, sensation intact and PERRL, EOMI, accommodation nl, no face palsy, no dysarthria Psychiatric A+Ox3, euthymic affect Lymphatic no cervical or axillary lymphadenopathy Discharge Data Allergies Allergy/AdvReac Type Severity Reaction Status Date / Time Sulfa (Sulfonamide Allergy Intermediate numb lips, Verified 02/15/12 14:32 Antibiotics) cheeks feel funny Consultations 02/06/21 17:20 Consult Gastroenterology Routine Consult General Surgery Routine Procedures Performed Operation Date: 02/07/21 07:55 Actual Procedures p Endoscopic Retrograde Cholangiopancreato - Rowena Marie DO s Endoscopic Ultrasonography Upper - Rowena Marie DO Ordered Studies 02/07/21 [place] ERCP biliary ductal Routine Hospital Course (1) Acute cholecystitis: diagnosed on imaging at [place], WBC was elevated on admission, LFT elevated treated with Zosyn for several days, no fever, vitals stable, WBC now normal less pain in RUQ, now no pain in RUQ consult surgery for cholecystectomy, Dr. Orlando stable for discharge today, Dr. Orlando's office will call her on Sunday 02/11 to schedule the surgery (2) Cholangitis: Bili down to 3 from 5 after ERCP with stone removal and stent placement AST, ALT, and alk phos trending down treated with Zosyn IV while here, change to Augmentin for 7 more days which will be total of 10 days treatment ERCP on 02/[address] Marie She was found to have multiple stones within the common bile duct and evidence of mild cholangitis. A biliary sphincterotomy was performed, stone extraction performed and biliary stent was placed she was instructed to avoid all NSAIDs for one week, continue on Augmentin [facility] will call her to schedule her for removal of stent in several weeks (3) Cholelithiasis: causing cholecystitis needs lap cholecystectomy eventually will schedule surgery for next week Total Time Total Time Spent Total Time Spent (In Minutes): 32 Total Time Includes: Examination of the Patient, Discharge Planning, Medication Reconciliation and Communication With Other Providers Discharge Plan Discharge Items Patient Disposition: Home - Self-Care Reason For Visit: CHOLECYSTITIS Discharge Diagnosis: Cholecystitis Choledocholithiasis (stones in common bile duct) Cholangitis Condition on Discharge: Good Goals: continue on antibiotics follow up on Sunday 02/11 for laparoscopic cholecystectomy with Dr. Orlando Activity: Resume your previous activity Driving/Machine Use: No limitations Weightbearing: Full weightbearing Non-emergency contact: Primary Care Provider and Surgeon Call non-emergency contact if: you have any medication questions, your symptoms worsen, your pain is worsening and you have a fever Follow-up/Referrals: aJyden Hurtado [Primary Care Provider] - Diet: Low Fat Addtl Attending Provider Instructions: Medications: - AUGMENTIN: antibiotic to continue to cover biliary tract and gall bladder, take 14 more doses, start this evening, take twice a day Acute cholecystitis, cholangitis, choledocholithiasis treated with IV antibiotics since admitted to [facility] no fever, no pain, WBC has been normal you had successful ERCP yesterday with Dr. Marie, he swept out several stones in common bile duct and placed biliary stent next step is removal of the gall bladder so that this does not happen again Dr. Orlando will call you on Wednesday to schedule the surgery for later next week, this is not emergent please continue on Augmentin until script is finished you can take Tylenol if you have pain or fever, DO NOT TAKE MOTRIN as you should avoid all NSAIDs for a week after the ERCP Post ERCP with stent Dr. Marie's office will contact you about following up in several weeks for removal of the biliary stent this would be a quick scope Pending Studies at Discharge: No Stand-Alone Forms: My [facility] [employer], Smoking Cessation Medications and DC Order Prescriptions: New amoxicillin-pot clavulanate [Augmentin] 875-125 mg tablet 1 tab PO BID 7 Days Qty: 14 RF: 0 Continued Zyrtec 10 mg Capsule 10 mg PO DAILY PRN (Reason: Allergy Symptoms) RF: 0 Discharge Orders: Discharge Order (Routine); Ordered 02/08/21 Ordered By: Edwin Aquino Admission Data Admit Date/Time: 02/06/21 17:18 Attending Provider: Edwin Aquino Admit Provider: Edwin Aquino Primary Care Provider: Jayden Hurtado Other Providers: Rowena Marie ; Brook Orlando Other Interventions: Discharge Summary Assessment (RN) Last Done: 02/08/21 10:07 Coding Level of Care Code D/C Day Management >30 mins Diagnoses Acute cholecystitis K81.0 Cholangitis K83.09 Cholelithiasis K80.20 Cholecystitis presence: with cholecystitis Cholecystitis acuity: acute
--- NOTE | 2021-02-11 14:00 | GI REPORT ---
Patient Name: Shawnee Fabian Procedure Date: 02/07/2021 12:48 PM Date of : 1970 Admit Type: Inpatient Age: 50 Gender: Female Attending MD: Rowena Marie DO Procedure: ERCP Providers: Rowena Marie DO Referring MD: Edwin Aquino Indications: Abdominal pain of suspected biliary origin, Suspected bile duct stone(s), Jaundice Medicines: General Anesthesia Complications: No immediate complications. Estimated blood loss: Minimal. Estimated Blood Loss: Estimated blood loss was minimal. Procedure: Pre-Anesthesia Assessment: - Prior to the procedure, a History and Physical was performed, and patient medications, allergies and sensitivities were reviewed. The patient's tolerance of previous anesthesia was reviewed. - The risks and benefits of the procedure and the sedation options and risks were discussed with the patient. All questions were answered and informed consent was obtained. - Patient identification and proposed procedure were verified prior to the procedure by the physician, the nurse and the crutching contractor. The procedure was verified in the procedure room. - Pre-procedure physical examination revealed no contraindications to sedation. - ASA Grade Assessment: II - A patient with mild systemic disease. - After reviewing the risks and benefits, the patient was deemed in satisfactory condition to undergo the procedure. - The anesthesia plan was to use general anesthesia. - Immediately prior to administration of medications, the patient was re-assessed for adequacy to receive sedatives. - The heart rate, respiratory rate, oxygen saturations, blood pressure, adequacy of pulmonary ventilation, and response to care were monitored throughout the procedure. - The physical status of the patient was re-assessed after the procedure. After obtaining informed consent, the scope was passed under direct vision. Throughout the procedure, the patient's blood pressure, pulse, and oxygen saturations were monitored continuously. The Scope was introduced through the mouth, and advanced to the duodenum and used to cannulate the bile duct. The ERCP was accomplished without difficulty. The patient tolerated the procedure well. Findings: The esophagus was successfully intubated under direct vision without detailed examination of the pharynx, larynx, and associated structures, and upper GI tract. The upper GI tract was grossly normal. The major papilla was edematous. The bile duct was deeply cannulated with the short-nosed traction sphincterotome and guidewire. Contrast was injected. I personally interpreted the bile duct images. Contrast extended to the hepatic ducts. The lower third of the main bile duct and middle third of the main bile duct contained filling defect(s) thought to be a stone and sludge. Biliary sphincterotomy was made with a monofilament Fusion OMNI sphincterotome using ERBE electrocautery. There was no post-sphincterotomy bleeding. To discover objects, the biliary tree was swept with a 12 mm balloon starting at the bifurcation. A few stones were removed. No stones remained. Pus was swept from the duct. One 10 Fr by 7 cm biliary stent with a single external flap and a single internal flap was placed 7 cm into the common bile duct. Bile flowed through the stent. The stent was in good position. The endoscope was withdrawn from the patient. Indomethacin 100 mg was given via suppository to decrease the risk of post-ERCP pancreatitis (PEP). Impression: - The major papilla appeared edematous. - A filling defect consistent with a stone and sludge was seen on the cholangiogram. - Choledocholithiasis was found. Complete removal was accomplished by biliary sphincterotomy and balloon extraction. - The biliary tree was swept and pus was found. - One biliary stent was placed into the common bile duct. - Indomethacin given to decrease risk of post-ERCP pancreatitis. Recommendation: - Avoid aspirin and nonsteroidal anti-inflammatory medicines for 1 week. - Clear liquid diet today. - Observe patient's clinical course. - Repeat ERCP in 6 weeks to remove stent. - Use broad spectrum antibiotics for 10 days. Rowena Marie D.O. Rowena Marie DO 02/11/2021 1:59:43 PM This report has been signed electronically. Note Initiated On: 02/07/2021 12:48 PM Number of Addenda: 0 I attest to the content of the Intraoperative Record and orders documented therein, exceptions below {[id number]}
== END 2021-02-08 11:08 | disposition home or self-care (01) | DRG 445 ==
LOC: 3W 17:18

== ENCOUNTER 2021-04-02 09:46 | Inpatient (IN) ==
--- NOTE | 2021-02-11 09:23 | PAT Medication Instructions ---
Medication Instructions Date of Service February 11, 2021 Home Medications Medication Instructions Recorded amoxicillin-pot clavulanate 1 tab PO BID 7 Days #14 tab 02/08/21 [Augmentin] Zyrtec 10 mg PO DAILY PRN amoxicillin-pot clavulanate [Augmentin] 1 tab PO BID acetaminophen [Tylenol] 325 mg PO QID PRN Continue as directed amoxicillin-pot clavulanate [Augmentin] 1 tab PO BID DO NOT take the morning of surgery Zyrtec 10 mg PO DAILY PRN Take morning of surgery With a small sip of water, OTHERWISE NOTHING TO EAT OR DRINK AFTER MIDNIGHT: acetaminophen [Tylenol] 325 mg PO QID PRN (okay to take up to 4 hours prior to surgery if needed) Take evening before surgery acetaminophen [Tylenol] 325 mg PO QID PRN (if needed) Other Notes If you have any questions please call us at [phone] or [phone] or [phone] or [phone]
--- NOTE | 2021-03-19 08:21 | PAT Medication Instructions ---
Medication Instructions Date of Service March 19, 2021 Home Medications Medication Instructions Recorded oxycodone-acetaminophen [Percocet] 1 tab PO Q6H PRN #20 tab 02/17/21 Zyrtec 10 mg PO DAILY PRN acetaminophen 1,000 mg PO Q6H PRN azelastine-fluticasone 1 spray INTRANASAL BID PRN multivitamin 1 tab PO QAM oxycodone-acetaminophen [Percocet] 1 tab PO Q6H PRN DO NOT take the morning of surgery Zyrtec 10 mg PO DAILY PRN multivitamin 1 tab PO QAM Take morning of surgery With a small sip of water, OTHERWISE NOTHING TO EAT OR DRINK AFTER MIDNIGHT: acetaminophen 1,000 mg PO Q6H PRN (okay to take up to 4 hours prior to surgery if needed) azelastine-fluticasone 1 spray INTRANASAL BID PRN (if needed) oxycodone-acetaminophen [Percocet] 1 tab PO Q6H PRN (okay to take up to 4 hours prior to surgery if needed) Take evening before surgery Zyrtec 10 mg PO DAILY PRN (if needed) acetaminophen 1,000 mg PO Q6H PRN (if needed) azelastine-fluticasone 1 spray INTRANASAL BID PRN (if needed) oxycodone-acetaminophen [Percocet] 1 tab PO Q6H PRN (if needed) Other Notes If you have any questions please call us at [phone] or [phone] or [phone] or [phone]
--- NOTE | 2021-03-19 10:58 | Anesthesiology Consultation ---
Date of Service March 19, 2021 Assessment & Plan (1) Encounter for pre-operative examination: - COVID screening: Per assessment on 03/19: Travel screen negative, no known COVID-19 positive contacts or current COVID-19 related symptoms. Surgeon arranging preop COVID testing. Awaiting results. - Check test AM DOS - S/P Lap cholecystectomy (02/17/21): Grade 2 view, MAC#3, ETT 7.0 at [facility] Chart Review Chart Review: Acceptable Risk for Surgery and Patient seen in Pre Admission Testing Teaching & Discussion Pre-Anesthesia Teaching/Discussion Notes: Instructed NPO after midnight before surgery,except medications with 15 cc of water. Medication instructions provided according to the PAT guidelines. History Surgery Operation Date: 04/02/21 07:45 Proposed Procedures p L3-L4 Decompression and Fusion, L4-L5 Hardware Removal, Spinal Cord Monitoring - Dell Handley, Height/Weight Height: 5 ft 1 in Weight: 65.3 kg Allergies Allergy/AdvReac Type Severity Reaction Status Date / Time Sulfa (Sulfonamide Allergy Intermediate Lips Verified 03/19/21 11:09 Antibiotics) numbness, cheeks "felt funny" Medications Home Medications Medication Instructions Recorded Confirmed Last Taken Zyrtec 10 mg PO DAILY PRN 02/06/21 02/17/21 02/10/21 acetaminophen 1,000 mg PO Q6H PRN 02/14/21 02/17/21 Unknown azelastine-fluticasone 1 spray INTRANASAL BID PRN 02/14/21 02/17/21 Unknown multivitamin 1 tab PO QAM 02/14/21 02/17/21 02/10/21 oxycodone-acetaminophen [Percocet] 1 tab PO Q6H PRN #20 tab 02/17/21 Unknown Past Medical History Medical History Cancer BCC Seasonal allergies Exercise / Class Metabolic Activity II 4-5 Yardwork/Stairs/Walk up hill (one FS (no CP, no SOB)) Past Family History Family History Sister Diabetes Past Surgical History Surgical History Fusion of spine L4-5 History of carpal tunnel release R/L History of cholecystectomy Lap cholecystectomy (02/17/21): Grade 2 view, MAC#3, ETT 7.0 at [facility] History of ERCP ERCP + stent (02/07/21) MAC#3, ETT 7.0 at [facility] History of tooth extraction Hx of inguinal hernia repair Past Anesthesia History No Hx of Anesthesia Complications (except PONV) and No Family Hx of Anesthesia Complications History of PONV History of PONV (*No issue with most recent surgeries*) and Hx of Motion Sickness Social History Smoking Status: Never smoker Do You Dip or Chew Tobacco: No Hx Alcohol Use: No Hx Substance Use: No substance use type: does not use Review of Systems Patient denies chest pain, shortness of breath, dyspnea on exertion, fever, chills, cough, wheezing, palpitations. Physical Exam Vital Signs VITALS BP 105/73 P 92 TEMP 98.5 SP02 96%RA RESP 16 PHYSICAL Full cervical extension range of motion. Full TMJ range of motion. TMD 3 finger breaths Mallampati Score 1 Dentition: missing teeth (including upper left/right sides) Lungs: clear throughout to auscultation Cardiac: regular rate and rhythm, no murmurs noted Spine: normal Carotid arteries: negative bruit Extremities: no edema Lab Results Anesthesia Preop Results Results Anesthesia Widget: WBC 4.48 K/uL (4.8-10.8) L 03/19/21 Hgb 13.2 g/dL (12.0-16.0) 03/19/21 Hct 39.5 % (37-47) 03/19/21 Plt 253 K/uL (130-400) 03/19/21 Na 142 mmol/L (136-145) 02/08/21 K 3.3 mmol/L (3.5-5.1) L 02/08/21 Cl 110 mmol/L (98-107) H 02/08/21 CO2 29 mmol/L (21-32) 02/08/21 BUN 8 mg/dl (7-18) 02/08/21 Creat 0.78 mg/dl (0.6-1.2) 02/08/21 Glucose Level 110 mg/dl (70-99) H 02/08/21 PT 10.3 Seconds (9.0-12.0) 03/19/21 PTT 27.3 Seconds (21.0-31.0) 03/19/21 INR 1.0 (0.9-1.1) 03/19/21 Urine Color Yellow 03/19/21 Urine Appearance Cloudy (Clear) A 03/19/21 Urine pH 5.0 (4.5-7.5) 03/19/21 Urine Specific [place] 1.017 (1.000-1.030) 03/19/21 Urine Protein Negative (Negative) 03/19/21 Urine Glucose (UA) Negative (Negative) 03/19/21 Urine Ketones Negative (Negative) 03/19/21 Urine Blood Negative (Negative) 03/19/21 Urine Nitrite Negative (Negative) 03/19/21 Urine Bilirubin Negative (Negative) 03/19/21 Urine Urobilinogen Negative (Negative) 03/19/21 Urine Leukocyte Esterase Negative (Negative) 03/19/21 Urine WBC (Auto) 1-5 /hpf (0-5) 03/19/21 Urine RBC (Auto) 0-4 /hpf (0-4) 03/19/21 Urine Hyaline Casts (Auto) 1-5 /lpf (0-5) 03/19/21 Urine Epithelial Cells (Auto) >30 /lpf (0-5) H 03/19/21 Urine Bacteria (Auto) Negative (Negative) 03/19/21 Blood Type A Positive 03/19/21 Antibody Screen NEGATIVE 03/19/21 Testing Electrocardiogram Date: 02/04/21 NSR 86 bpm. Possible LAE. Chest X-Ray Date: 02/04/21 Findings: + NAD
[~2021-04-02 09:46] MED LIST: ACETAMINOPHEN 500 MG TAB PO SCH; CeleBREX 200 MG CAP PO SCH; GABAPENTIN 900 MG DOSE PO SCH; LR 15ML/HR IV SCH; ceFAZolin 1000MG 1,000 MG/7.5 ML SYR IV SCH
[2021-04-02] MEDS ORDERED: fentaNYL citrate 100 MCG/2 ML VIAL ONE (10:43)
[2021-04-02] MEDS ORDERED: MIDAZOLAM HCL 1 MG/ML 2ML VIAL ONE (10:43)
[2021-04-02] MEDS ORDERED: ROCURONIUM BROMIDE 10 MG/ML 5 ML VIAL IV ONE (10:43)
[2021-04-02] MEDS ORDERED: DEXAMETHASONE SOD INJ 4 MG/ML VIAL ONE (10:43)
[2021-04-02] MEDS ORDERED: PROPOFOL IV EMULSION 10 MG/ML 20 ML VIAL IV ONE (10:43)
[2021-04-02] MEDS ORDERED: ONDANSETRON INJ 2 MG/ML 2 ML VIAL ONE ×2 (10:43→13:56)
[2021-04-02] MEDS ORDERED: HYDROmorphone INJ 2 MG/ML SYR/VIAL ONE (10:44)
--- NOTE | 2021-04-02 12:04 | History & Physical Bridge Note ---
Date of Service April 02, 2021 History & Physical Bridge Note I have examined the patient, reviewed the History & Physical and in the interval since the performance of the History & Physical I have noted the following changes of clinical significance: no changes noted
--- NOTE | 2021-04-02 12:05 | History & Physical Report ---
Date of Service April 02, 2021 Assessment & Plan (1) Neurogenic claudication due to lumbar spinal stenosis: Plan: L3-L4 decompression fusion, L4-L5 hardware removal History of Present Illness Chief Complaint: Back and leg pain Primary Care Provider: Jayden Hurtado This is a 50-year-old female well-known to me the presents chronic persistent back and leg pain. Failing course of nonoperative care she is here for surgical invention. Allergies Allergy/AdvReac Type Severity Reaction Status Date / Time Sulfa (Sulfonamide Allergy Intermediate Lips Verified 04/02/21 10:15 Antibiotics) numbness, cheeks "felt funny" Home Medications Medication Instructions Recorded Confirmed Type cetirizine 10 mg capsule (Zyrtec) 10 mg PO DAILY PRN 02/06/21 04/02/21 History acetaminophen 500 mg capsule 1,000 mg PO Q6H PRN 02/14/21 04/02/21 History azelastine-fluticasone 137 mcg-50 1 spray INTRANASAL BID PRN 02/14/21 04/02/21 History mcg/spray nasal spray multivitamin 1 tab PO QAM 02/14/21 04/02/21 History oxycodone-acetaminophen 5 mg-325 1 tab PO Q6H PRN #20 tab 02/17/21 04/02/21 Rx mg tablet (Percocet) Past Med/Surg History Medical History Cancer BCC Seasonal allergies Surgical History Fusion of spine L4-5 History of carpal tunnel release R/L History of cholecystectomy Lap cholecystectomy (02/17/21): Grade 2 view, MAC#3, ETT 7.0 at [facility] History of ERCP ERCP + stent (02/07/21) MAC#3, ETT 7.0 at [facility] History of tooth extraction Hx of inguinal hernia repair Family History Sister Diabetes Social History (Updated 02/14/21 @ 10:27 by Flaca Carranza RN) Smoking Status: Never smoker Second Hand Exposure: Yes (FAMILY SMOKED); Do You Dip or Chew Tobacco: No; Tobacco Cessation Education Requested by Patient: No Hx Alcohol Use: No Hx Substance Use: No Preferred Language: Nauruan Communication Ability: Effective Renal Social Worker Required: No Beliefs That Will Affect Care: None Current Living Situation: Spouse current occupational status: employed current occupation: [employer] Other Information That Helps Us Care for You: No Feels Safe at Home: Yes Safety Concerns: Feels Safe At This Time Assistive Devices: Glasses Physical Exam Physical Exam: Patient is alert and oriented Heart regular rhythm Lungs clear to auscultation Results & Data ([facility]) Vital Signs (Past 12 Hours) Vital Signs Temp Pulse Resp BP Pulse Ox 04/02/21 10:06 36.9 C 97 H 20 139/99 99
[2021-04-02] MEDS ORDERED: BUPIVACAINE/EPINEPHRINE 0.5% MPF 1:200,000 30 ML VIAL ONE (12:15)
[2021-04-02] MEDS ORDERED: fentaNYL citrate 100 MCG/2 ML VIAL IV PRN (12:25)
[2021-04-02] MEDS ORDERED: PROMETHAZINE HCL 12.5 MG in SODIUM CHLORIDE 0.9% 50 ML IV PRN ×2 (12:25→16:12)
[2021-04-02] MEDS ORDERED: ATROPINE SULFATE 0.1 MG/ML 10ML SYR IV PRN (12:25)
[2021-04-02] MEDS ORDERED: ePHEDrine sulfate 50 MG/ML AMP IV PRN (12:25)
[2021-04-02] MEDS ORDERED: METOCLOPRAMIDE HCL INJ 5 MG/ML 2 ML VIAL IV PRN ×2 (12:25→16:12)
[2021-04-02] MEDS ORDERED: ONDANSETRON INJ 2 MG/ML 2 ML VIAL IV PRN ×2 (12:25→16:12)
[2021-04-02] MEDS ORDERED: HYDROmorphone INJ 2 MG/ML SYR/VIAL IV PRN (12:25)
[2021-04-02] MEDS ORDERED: PROMETHAZINE HCL INJ 25 MG/ML 1 ML VIAL ONE (12:57)
[2021-04-02] MEDS ORDERED: FLOSEAL HEMOSTATIC MATRIX 10ML TOP ONE (13:55)
[2021-04-02] MEDS ORDERED: SUGAMMADEX SODIUM 200 MG/2 ML VIAL IV ONE (13:57)
--- NOTE | 2021-04-02 14:13 | Operative Report ---
Post Operative Report Pre & Post Diagnosis Operation Date: 04/02/21 11:25 Pre-Op Diagnosis: Neurogenic Claudication due to Lumbar Spinal Stenosis Post-Op Diagnosis: Neurogenic Claudication due to Lumbar Spinal Stenosis I identified the patient and participated in the time-out.: Yes Procedure Operation Date: 04/02/21 11:25 Actual Procedures #1 removal of instrumentation L4-5. #2 exploration of fusion L4-5. #3 lumbar decompression with bilateral medial facetectomies and foraminotomies L2-3 and L3-4. #4 posterior spinal fusion L3-4. #5 placement posterior instrumentation L3-4. #6 interbody fusion L3-4. #7 placement peek cage 10 x 22 mm at L3-4. #8 placement locally harvested morselized autograft in the posterior gutters. #9 placement infuse collagen sponge, master graft in the posterior lateral gutters and I factor in the interbody space. Surgeon Dell Handley, Senior Group Manager Destini Pulido Estimated Blood Loss 100 Findings Consistent with Post-Op Diagnosis Specimens None Indications This is a 50-year-old female presents with above-mentioned diagnosis and course of nonoperative care she is here for the above-mentioned procedure. Description of Procedure Patient was met with identified informed consent obtained. Patient was then taken to the operative suite underwent ablation placed in a prone position on Theodore table top Kiran frame. All bony prominences well-padded eyes inspected to ensure no external pressure placed upon the. This point the lumbar spine was prepped and draped in a sterile fashion. Sharp dissection with the assistance of Bovie cautery performed down to and exposing the lamina and transverse processes of L3 and the instrumentation at L4-L5 bilaterally. Then proceeded move the hardware bilaterally explore the fusion mass noting it to be intact. Informed complete laminectomy of L3 partial laminectomy of L2 including bilateral medial facetectomies and foraminotomies addressing severe spinal stenosis. Pedicle screws were then placed in L3 and L4 bilaterally with assistance of fluoroscopy the proper sized andrea placed. By way of a transforaminal posterior left complete discectomy was performed endplates curetted to subcortical bleeding bone and a 10 x 22 mm peek cage filled with I factor tapped in position. The rods were then locked in 5 position bilaterally. The transverse processes of L3 on L4 burred to subcortically bone. Infuse collagen sponge master graft lobe autograft was placed in the posterior gutters. 15 round BRISA drain inserted. The incision was then closed with 1 Vicryl the fascia 2-0 Vicryl subcutaneously and 4 Monocryl for final skin closure. Steri- Strip sterile dressings placed. Patient will continue PACU stable condition. Please note spinal cord monitoring was utilized at the procedure no changes noted. Lastly Destini Pulido was present at the entire surgery and while the patient positioning complex portions of the surgery and final skin closure. I attest to the content of the Intraoperative Record and any orders documented therein. Any exceptions are noted below.
--- NOTE | 2021-04-02 15:16 | Fluoroscopy Report ---
FL lumbar spine 2-3V CLINICAL HISTORY: Hardware removal. L3-L4 decompression. COMPARISON STUDY: Lumbar spine radiographs February 16, 2012. FLUOROSCOPY TIME: 15 seconds. FLUOROSCOPIC IMAGES: 2 FINDINGS: L4-L5 pedicle screws have been removed. L4-L5 disc spacer is noted. Interval L3-L4 discecto my with interbody spacer placement as noted with posterior decompression bilateral pedicle screw fusi on. IMPRESSION: Fluoroscopy provided during L3-L4 discectomy, posterior decompression and bilateral pedi chiquis screw fusion. ACT 112: Negative or not required by law. Electronically signed by: Venancio Peres M.D. 04/02/2021 3:14 PM
[2021-04-02] MEDS ORDERED: MAGNESIUM HYDROXIDE SUSP 30 ML UDC PO PRN (16:12)
[2021-04-02] MEDS ORDERED: traMADol HCL 50 MG TABLET PO PRN (16:12)
[2021-04-02] MEDS ORDERED: HYDROmorphone INJ 0.5 MG/0.5 ML SYR IV PRN (16:12)
[2021-04-02] MEDS ORDERED: DO NOT ADMINISTER PNEUMOCOCCAL VACCINE PRN (16:12)
[2021-04-02] MEDS ORDERED: HYDROmorphone INJ 1 MG/ML SYRINGE IV PRN (16:12)
[2021-04-02] MEDS ORDERED: hydrOXYzine HCl 25 MG TAB PO PRN (16:12)
[2021-04-02] MEDS ORDERED: FAMOTIDINE 20 MG TAB PO PRN (16:12)
[2021-04-02] MEDS ORDERED: LORazepam 0.5 MG TAB PO PRN (16:12)
[2021-04-02] MEDS ORDERED: NON-FORMULARY MEDICATION (Acetaminophen 500 mg Capsule) PO PRN (16:12)
[2021-04-02] MEDS ORDERED: NALOXONE HCL 0.4 MG/1 ML VIAL/CARP IV PRN (16:12)
[2021-04-02] MEDS ORDERED: SOD PHOSPHATE/SOD BIPHOSPHATE ENEMA 132 ML BTL PR PRN (16:12)
[2021-04-02] MEDS ORDERED: ACETAMINOPHEN 1,000 MG/100 ML VIAL IV PRN (16:12)
[2021-04-02] MEDS ORDERED: diphenhydrAMINE Capsule 25 MG CAP PO PRN (16:12)
[2021-04-02] MEDS ORDERED: LORazepam 0.5 MG/1 ML VIAL IV PRN (16:12)
[2021-04-02] MEDS ORDERED: ONDANSETRON 4 MG OD TAB PO PRN (16:12)
[2021-04-02] MEDS ORDERED: ALUMINUM/MAGNESIUM SUSP 30 ML UDC PO PRN (16:12)
[2021-04-02] MEDS ORDERED: ACETAMINOPHEN 500 MG TAB PO PRN (16:12)
[2021-04-02] MEDS ORDERED: DO NOT ADMINISTER FLU VACCINE PRN (16:12)
[2021-04-02] MEDS ORDERED: CETIRIZINE HCL 10 MG TABLET PO PRN (16:41)
[2021-04-02] MEDS: SODIUM CHLORIDE 0.9% 1000ML 1,000 ML IV SCH (17:47)
[2021-04-02] MEDS: KETOROLAC TROMETHAMINE 15 MG/ML VIAL IV SCH ×2 (17:48→22:30)
[2021-04-02] MEDS: ceFAZolin 1000MG 1,000 MG/7.5 ML SYR IV SCH (20:01)
[2021-04-02] MEDS: DOCUSATE SODIUM/SENNA 50/8.6MG TAB PO SCH (20:22)
[2021-04-03] MEDS: ceFAZolin 1000MG 1,000 MG/7.5 ML SYR IV SCH (03:30)
[2021-04-03] MEDS: KETOROLAC TROMETHAMINE 15 MG/ML VIAL IV SCH ×2 (04:09→12:02)
[2021-04-03] MEDS: SODIUM CHLORIDE 0.9% 1000ML 1,000 ML IV SCH (04:13)
[2021-04-03] MEDS: POLYETHYLENE (MIRALAX) 17 GM PACK PO SCH ×2 (05:36→12:00)
[2021-04-03] MEDS: MULTIVITAMIN TAB PO SCH (07:54)
[2021-04-03 11:00] LABS: Hematocrit (blood only) 35.5 % (37-47); Hemoglobin 11.6 g/dL (12.0-16.0); Immature Granulocytes # (auto) 0.03 K/uL (0.00-0.02); Immature Granulocytes % (auto) 0.2 %; Lymphocytes # (auto) 1.22 K/uL (1.2-3.4); Lymphocytes % (auto) 8.9 %; Mean Corpuscular Hemoglobin 27.6 pg (25-34); Mean Corpuscular Volume 84.3 fL (80-100); Mean Platelet Volume 9.7 fL (7.4-10.4); Monocytes # (auto) 1.12 K/uL (0.11-0.59); Monocytes % (auto) 8.2 %; Neutrophils # (auto) 11.27 K/uL (1.4-6.5); Neutrophils % (auto) 82.7 %; Platelet Count 282 K/uL (130-400); RDW Coefficient of Variation 14.6 % (11.5-14.5); RDW Standard Deviation 45.2 fL (36.4-46.3); Red Blood Count 4.21 M/uL (4.2-5.4); White Blood Count 13.64 K/uL (4.8-10.8)
[2021-04-03 11:21] LABS: BUN Creatinine Ratio 12.4 (10-20); Calcium 8.8 mg/dl (8.5-10.1); Creatinine Clr Calc Pharmacy 91.3 ml/min; Est GFR (African American) 120.2 ml/min; Est GFR (Non-African American) 103.7 ml/min; Potassium 4.1 mmol/L (3.5-5.1)
[2021-04-03 11:28] LABS: Mean Corpuscular Hgb Conc 32.7 g/dL (32-36)
--- NOTE | 2021-04-03 11:55 | Orthopedic Progress Note ---
Date of Service April 03, 2021 Assessment & Plan (1) Neurogenic claudication due to lumbar spinal stenosis: Plan: This time continue physical therapy monitor BRISA operatively discharge home in next day or so. Admission and Anticipated Discharge Date Admission Date: April 02, 2021 Subjective Back pain controlled leg symptoms markedly improved Physical Exam Physical Exam: Patient has good strength testing. Appears comfortable. Results & Data ([facility]) Vital Signs (Past 12 Hours) Vital Signs Temp Pulse Resp BP Pulse Ox 04/03/21 11:00 36.6 C 71 20 100/65 99 04/03/21 07:00 36.6 C 74 20 103/69 98 04/03/21 03:44 36.5 C 63 16 97/61 L 98 04/03/21 00:16 37.0 C 82 16 101/64 97
--- NOTE | 2021-04-03 18:38 | Consultation ---
Date of Consultation April 03, 2021 Assessment & Plan (1) Neurogenic claudication due to lumbar spinal stenosis: Post op day# 1 S/P L3-L4 Decompression and Fusion by Dr Handley -pain management per ortho -wound management per ortho, +BRISA drain in place -PT/OT as appropriate -DVT prophylaxis per ortho -incentive spirometry -monitor H/H (2) Status post lumbar surgery: doing well post operatively, pain is well managed and she is ambulatory. (3) Seasonal allergies: Declines intranasal spray or Zyrtec at this time. Symptoms are controlled. (4) DVT prophylaxis: SCDs/ambulation Full Code Dispo-discharge per orthopedics Thank you for this consultation. Cont current management. We will continue to follow this patient throughout her hospital stay. Darby Mon DO [facility] Hospitalist History of Present Illness Reason for Consultation: post op medical management Attending Physician: Dell Handley DO History of Present Illness This is a 50-year-old female well-known to me the presents chronic persistent back and leg pain. She is s/p lumbar surgery yesterday and doing well. We have been asked to evaluate her for post-op medical management. Medications were reconciled with the patient. She is tolerating PO, reports her pain is well managed and she is mentating clearly. Allergies Allergy/AdvReac Type Severity Reaction Status Date / Time Sulfa (Sulfonamide Allergy Intermediate Lips Verified 04/02/21 10:15 Antibiotics) numbness, cheeks "felt funny" Home Medications Medication Instructions Recorded Confirmed Type cetirizine 10 mg capsule (Zyrtec) 10 mg PO DAILY PRN 02/06/21 04/02/21 History acetaminophen 500 mg capsule 1,000 mg PO Q6H PRN 02/14/21 04/02/21 History azelastine-fluticasone 137 mcg-50 1 spray INTRANASAL BID PRN 02/14/21 04/02/21 History mcg/spray nasal spray multivitamin 1 tab PO QAM 02/14/21 04/02/21 History oxycodone-acetaminophen 5 mg-325 1 tab PO Q6H PRN #20 tab 02/17/21 04/02/21 Rx mg tablet (Percocet) Patient History Medical History Cancer BCC Seasonal allergies Surgical History Fusion of spine L4-5 History of carpal tunnel release R/L History of cholecystectomy Lap cholecystectomy (02/17/21): Grade 2 view, MAC#3, ETT 7.0 at [facility] History of ERCP ERCP + stent (02/07/21) MAC#3, ETT 7.0 at [facility] History of tooth extraction Hx of inguinal hernia repair Family History Sister Diabetes Social History Smoking Status: Never smoker Second Hand Exposure: Yes (FAMILY SMOKED); Do You Dip or Chew Tobacco: No; Tobacco Cessation Education Requested by Patient: No Hx Alcohol Use: No Hx Substance Use: No Preferred Language: Georgian Communication Ability: Effective 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 Physical Exam Physical Exam: CONSTITUTIONAL: WNWD, vitals as above, generally well- appearing EYES: normal conjunctivae, no scleral icterus ENT: external ear and nose normal, MMM NECK: trachea midline RESPIRATORY: clear to auscultation bilaterally, no crackles, rales or wheezes, normal respiratory effort CARDIOVASCULAR: regular rate and rhythm, S1 and 2 heard without murmurs, gallops or rubs, no JVD, no peripheral edema GASTROINTESTINAL: soft, nontender, nondistended, no guarding MUSCULOSKELETAL: strength 5/5 throughout, head is normocephalic and atraumatic SKIN: warm and dry, +BRISA drain in place. NEUROLOGIC: CN 2-12 grossly intact, no sensory deficit, normal cognition, normal speech, no tremor PSYCHIATRIC: alert cooperative and oriented to person, place and time. Results & Data ([facility]) Vital Signs (Past 12 Hours) Vital Signs Temp Pulse Resp BP Pulse Ox 04/03/21 15:00 36.8 C 79 20 122/74 100 04/03/21 11:00 36.6 C 71 20 100/65 99 04/03/21 07:00 36.6 C 74 20 103/69 98
[2021-04-03] MEDS: DOCUSATE SODIUM/SENNA 50/8.6MG TAB PO SCH (20:08)
[2021-04-03] MEDS: oxyCODONE HCL IR 5 MG TAB (IMMEDIATE RELEASE) PO PRN (22:22)
[2021-04-04] MEDS: oxyCODONE HCL IR 5 MG TAB (IMMEDIATE RELEASE) PO PRN ×3 (04:14→14:40)
[2021-04-04] MEDS: MULTIVITAMIN TAB PO SCH (07:30)
[2021-04-04] MEDS ORDERED: bisacodyL 10 MG SUPP PR PRN (08:00)
[2021-04-04] MEDS ORDERED: dexAMETHasone 8 MG in SYRINGE 0 ML IV SCH (09:00)
--- NOTE | 2021-04-04 12:21 | Discharge Summary ---
Date of Service April 04, 2021 Admission HPI Per Admitting Provider This is a 50-year-old female well-known to me the presents chronic persistent back and leg pain. Failing course of nonoperative care she is here for surgical invention. Principal Diagnosis Lumbar spinal stenosis with neurogenic claudication Discharge Data Allergies Allergy/AdvReac Type Severity Reaction Status Date / Time Sulfa (Sulfonamide Allergy Intermediate Lips Verified 04/02/21 10:15 Antibiotics) numbness, cheeks "felt funny" Consultations 04/02/21 16:12 Consult Hospitalist Routine Procedures Performed Operation Date: 04/02/21 11:25 Actual Procedures p L3-L4 Decompression and Fusion with Insertion of Interbody, Application of Bone Morphogenetic Protein, Spinal Cord Monitoring(Not Applicable) - Dell Handley DO s L4-L5 Hardware Removal(Not Applicable) - Dell Handley DO Ordered Studies 04/02/21 11:25 FL lumbar spine 2-3V Routine Hospital Course (1) Neurogenic claudication due to lumbar spinal stenosis: Patient went lumbar decompression fusion toes posting orthopedic for postoperative. Postop day 1 she was [address] ambulating place postop day #2 BRISA drain decreasing probably. Pain well controlled. Subsequently discharged home. Discharge orders instructions were on the chart for further review. Total Time Total Time Spent Total Time Spent (In Minutes): 20 minutes Discharge Plan Discharge Items Patient Disposition: Home - Self-Care Reason For Visit: Spinal Stenosis, Lumbar Region Discharge Diagnosis: Lumbar spinal stenosis with neurogenic claudication Activity: As commented below Non-emergency contact: Primary Care Provider Call non-emergency contact if: you have any medication questions Follow-up/Referrals: Jayden Hurtado [Primary Care Provider] - Diet: Regular Addtl Attending Provider Instructions: ACTIVITY RECOMMENDATIONS: SELF CARE INSTRUCTIONS AFTER THORACIC/LUMBAR FUSIONS 1. You may walk to your tolerance. It is good exercise for your legs and back. Expect some back and intermittent leg aches and pains. 2. You may perform "counter-top" level activities (make a sandwich, miguel with a project, etc.). 3. No bending or lifting of more than 10 pounds or back twisting of any nature (roll like a log when turning in bed). 4. You may ride in a car for 20-30 minutes at a time. No driving until after your first visit with your doctor. 5. Frequent changes of position and restricting sitting to 30 minutes at a time will help limit the amount of back spasms and stiffness you may experience. 6. You may discontinue the use of ambulatory aids (cane, crutches, etc.) once your strength and confidence allow. 7. You may printing assistant the shower and let water strike your incision when you arrive home at least once daily. Do not take a tub bath, sit in a hot tub or go into a swimming pool until after your first recheck in the office. SPECIAL CARE INSTRUCTIONS: VERY IMPORTANT TO READ AND REVIEW A. Your surgical incision has been closed with a cosmetic suture under the skin that will dissolve in about 6 weeks. In 14 days, you can use a pair of clean scissors and cut the suture that is left outside of the skin at the ends of your incision. 1. The small skin tapes can be removed 7 days after surgery if they have not fallen off by that point. 2. You may keep the wound open to air as much as possible to promote healing after post-op day number 5 unless told otherwise by your doctor. 3. If you think the wound looks like it is becoming infected (redness or worsening drainage) and/or you are experiencing fever, chill or worsening back pain and muscle spasms, contact the office so that we may evaluate you as soon as possible. B. Complications are uncommon, but please contact us if you have any signs or symptoms of: 1. wound infection (fever higher than 102.5 degrees F, redness, separation of wound, drainage, or increasing pain from the incision) 2. blood clots in legs (pain, swelling, redness and warmth in legs) 3. urinary tract infection (fever higher than 102.5 degrees F, burning upon urination or increased frequency of urination) 4. nerve problems (inability to walk on your toes or heels, numbness, loss of bowel or bladder control) 5. any other symptoms that concern you C. Please call the office at if you have any concerns or questions about your operation or recovery. D. No smoking! Smoking drastically decreases the chance of a solid fusion. E. Do not take any anti-inflammatory medications (Indocin, Advil, Motrin, Aspirin, Naprosyn, etc.) as these may inhibit the chance of a solid fusion. Tylenol is okay to take for pain. MANAGING PAIN AFTER SPINAL SURGERY 1. Narcotic medication is intended for short-term use and will be provided for surgical pain. Surgical pain usually lasts for a period of 4-6 weeks. Narcotic medication includes Percocet, Vicodin, Darvocet, Tylenol #3 or Lortab. 2. Longer-term pain is more appropriately treated with non-narcotic medication such as Tylenol ES. 3. Muscle spasm is not appropriately treated with narcotics. Muscle relaxers such as Soma, Flexeril or Skelaxin can be used along with Tylenol ES. 4. Remember that we all live with some "aches and pains". This is not unusual or uncommon after an injury or as we get older. a. Back pain is expected and may include muscle spasms for 4 to 6 weeks after surgery. The pain should gradually improve. If the pain worsens for no apparent reason, please contact the office. b. Intermittent leg pain may also be experienced and should not be concerned about unless it worsens for no apparent reason. If so, please contact the office. 5. We will provide appropriate medication within the normal guidelines of their prescribed use. We will also be very cautious and aware of potential abuse and extended duration of patients' medication needs. a. Pain medications are for your comfort and to assist with sleep and rest so that the tissue can heal. They are not provided in order to return to normal activity and should not be used through the day. To do so or worsening pain at night can result from ongoing tissue damage and development of tolerance to the prescribed medicine. 6. Please allow 2-3 days to process refills. Prescriptions will not be mailed but must be picked up at the office. FOLLOW UP VISIT: Keep your scheduled follow-up appointment. Any questions, please call the office at . Pending Studies at Discharge: No Stand-Alone Forms: [employer], Smoking Cessation Medications and DC Order Prescriptions: Continued Zyrtec 10 mg Capsule 10 mg PO DAILY PRN (Reason: Allergy Symptoms) RF: 0 acetaminophen 500 mg Capsule 1,000 mg PO Q6H PRN (Reason: Pain) RF: 0 multivitamin Tablet 1 tab PO QAM RF: 0 azelastine-fluticasone 137-50 mcg/spray [place],Non-Aerosol 1 spray INTRANASAL BID PRN (Reason: Allergy Symptoms) RF: 0 oxycodone-acetaminophen [Percocet] 5-325 mg tablet 1 tab PO Q6H PRN (Reason: pain) Qty: 20 RF: 0 Discharge Orders: Discharge Order (Routine); Ordered 04/04/21 Ordered By: Dell Handley Admission Data Admit Date/Time: 04/02/21 14:15 Attending Provider: Dell Handley Admit Provider: Dell Handley Primary Care Provider: Jayden Hurtado Other Providers: Darby Mon
--- NOTE | 2021-04-04 13:27 | Hospitalist Progress Note ---
Date of Service April 04, 2021 Assessment & Plan (1) Neurogenic claudication due to lumbar spinal stenosis: Plan: Post op day# 2 S/P L3-L4 Decompression and Fusion by Dr Handley -pain management per ortho -wound management per ortho, +BRISA drain in place -PT/OT as appropriate -DVT prophylaxis per ortho -incentive spirometry -monitor H/H (2) Status post lumbar surgery: Plan: doing well post operatively, pain is well managed and she is ambulatory. (3) Seasonal allergies: Plan: Declines intranasal spray or Zyrtec at this time. Symptoms are controlled. (4) DVT prophylaxis: Plan: SCDs/ambulation Full Code Dispo-discharge per orthopedics Thank you for this consultation. Darby Mon DO [facility] Hospitalist Admission and Anticipated Discharge Date Admission Date: April 02, 2021 Subjective 50 yo F s/p back surgery feeling well very minimal pain-discussed rare use of oxycodone she prefers this at 5mg dose preparing for discharge. Review of Systems Review of Systems: All systems were reviewed and negative except as indicated in HPI above. Physical Exam Physical Exam: CONSTITUTIONAL: WNWD, vitals as above, generally well- appearing EYES: normal conjunctivae, no scleral icterus ENT: external ear and nose normal, MMM NECK: trachea midline RESPIRATORY: clear to auscultation bilaterally, no crackles, rales or wheezes, normal respiratory effort CARDIOVASCULAR: regular rate and rhythm, S1 and 2 heard without murmurs, gallops or rubs, no JVD, no peripheral edema GASTROINTESTINAL: soft, nontender, nondistended, no guarding MUSCULOSKELETAL: strength 5/5 throughout, head is normocephalic and atraumatic SKIN: warm and dry, +BRISA drain in place. NEUROLOGIC: CN 2-12 grossly intact, no sensory deficit, normal cognition, normal speech, no tremor PSYCHIATRIC: alert cooperative and oriented to person, place and time. Results & Data Results & Data ([facility]) Vital Signs (Past 12 Hours) Vital Signs Temp Pulse Resp BP BP Pulse Ox 04/04/21 12:29 37 C 88 20 109/68 108/68 99 04/04/21 09:19 88 108/68 04/04/21 08:47 80 101/70 04/04/21 08:30 68 99/66 L 04/04/21 08:26 69 94/58 L 04/04/21 08:20 53 L 68/53 L 04/04/21 07:00 37 C 83 20 111/71 99 Medications Administered Current Inpatient Medications Acetaminophen (Acetaminophen 500 Mg Tab) 1,000 mg PO Q8H PRN PRN Reason: MILD Pain Scale 1,2,3 & Pre PT Stop: 05/02/21 16:11 Al Hydrox/Mg Hydrox/Simethicone (Aluminum/Magnesium Susp 30 Ml Udc) 30 ml PO Q6H PRN PRN Reason: Dyspepsia Stop: 05/02/21 16:11 Bisacodyl (Bisacodyl 10 Mg Supp) 10 mg [place] DAILY PRN PRN Reason: Constipation Stop: 05/04/21 07:59 Cetirizine HCl (Cetirizine Hcl 10 Mg Tablet) 10 mg PO DAILY PRN PRN Reason: Allergy Symptoms Stop: 05/02/21 16:40 Diphenhydramine HCl (Diphenhydramine Capsule 25 Mg Cap) 25 mg PO Q6H PRN PRN Reason: Allergic Rhinitis/Insomnia Stop: 05/02/21 16:11 Famotidine (Famotidine 20 Mg Tab) 20 mg PO Q12H PRN PRN Reason: Dyspepsia Stop: 05/02/21 16:11 Hydromorphone HCl (Hydromorphone Inj 0.5 Mg/0.5 Ml Syr) 0.5 mg IV Q3H PRN PRN Reason: MOD pain (scale 4-6) & Pre PT Stop: 04/16/21 16:11 Hydromorphone HCl (Hydromorphone Inj 1 Mg/Ml Syringe) 1 mg IV Q3H PRN PRN Reason: severe pain (scale 7-10) Stop: 04/16/21 16:11 Hydroxyzine HCl (Hydroxyzine Hcl 25 Mg Tab) 25 mg PO Q8H PRN PRN Reason: Anxiety Stop: 05/02/21 16:11 Promethazine HCl 12.5 mg/ (Sodium Chloride) 50.5 mls @ 202 mls/hr IV Q6H PRN PRN Reason: Nausea &/or Vomiting Stop: 05/02/21 16:11 Acetaminophen (Ofirmev) 1,000 mg in 100 mls @ 400 mls/hr IV Q8H PRN PRN Reason: Pain Rating 1-3 & Pre PT Stop: 04/05/21 16:11 Lorazepam (Ativan) 0.5 mg in 1 mls @ 1 mls/min IV Q8H PRN PRN Reason: Sedation/Anxiety Stop: 05/02/21 16:11 Dexamethasone 8 mg/ Syringe 2 mls @ 1 mls/min IV DAILY NAEL Stop: 05/04/21 08:59 Last Admin: 04/04/21 07:30 Dose: 1 mls/min Documented by: Influenza Virus Vaccine Quadrival (Do Not Administer Flu Vaccine) 1 ea N/A PRN PRN PRN Reason: Notification Stop: 05/02/21 16:11 Lorazepam (Lorazepam 0.5 Mg Tab) 0.5 mg PO Q8H PRN PRN Reason: sedation/anxiety Stop: 05/02/21 16:11 Magnesium Hydroxide (Magnesium Hydroxide Susp 30 Ml Udc) 30 ml PO Q24H PRN PRN Reason: Constipation Stop: 05/02/21 16:11 Metoclopramide HCl (Metoclopramide Hcl Inj 5 Mg/Ml 2 Ml Vial) 10 mg IV Q6H PRN PRN Reason: Nausea &/or Vomiting Stop: 05/02/21 16:11 Miscellaneous (Azelastine-Fluticasone 137-50 Mcg/[place],Non-Aerosol~Order Awaiting Action) 1 ea N/A QS NAEL Stop: 05/03/21 00:00 Last Admin: 04/04/21 07:26 Dose: Not Given Documented by: Multivitamins (Multivitamin Tab) 1 tab PO QAM NAEL Stop: 05/03/21 08:59 Last Admin: 04/04/21 07:30 Dose: Not Given Documented by: Naloxone HCl (Naloxone Hcl 0.4 Mg/1 Ml Vial/Carp) 0.1 mg IV Q5M PRN PRN Reason: Oversedation/respiratory dep Stop: 05/02/21 16:11 Ondansetron HCl (Ondansetron Inj 2 Mg/Ml 2 Ml Vial) 4 mg IV Q6H PRN PRN Reason: Nausea &/or Vomiting Stop: 05/02/21 16:11 Ondansetron HCl (Ondansetron 4 Mg Od Tab) 4 mg PO Q6H PRN PRN Reason: Nausea Stop: 05/02/21 16:11 Oxycodone HCl (Oxycodone Hcl Ir 5 Mg Tab (Immediate Release)) 5 - 10 mg PO Q4H PRN PRN Reason: Pain & Pre PT Stop: 04/16/21 16:11 Last Admin: 04/04/21 08:49 Dose: 5 mg Documented by: Pneumococcal Polyvalent Vaccine (Do Not Administer Pneumococcal Vaccine) 1 ea N/A PRN PRN PRN Reason: Notification Stop: 05/02/21 16:11 Senna/Docusate Sodium (Docusate Sodium/Senna 50/8.6mg Tab) 2 tab PO HS NAEL Stop: 05/02/21 20:59 Last Admin: 04/03/21 20:08 Dose: Not Given Documented by: Sodium Biphosphate/Sodium Phosphate (Sod Phosphate/Sod Biphosphate Enema 132 Ml Btl) 132 ml [place] ONE PRN PRN Reason: Constipation Stop: 05/02/21 16:11 Tramadol HCl (Tramadol Hcl 50 Mg Tablet) 50 - 100 mg PO Q4H PRN PRN Reason: Moderate-Severe pain & Pre PT Stop: 05/02/21 16:11
== END 2021-04-04 15:30 | disposition home or self-care (01) | DRG 455 ==
LOC: ASU 09:46 → 3E 14:15